=== PATIENT | female | born 1960 | race African-American/Black ===

== ENCOUNTER 2016-05-22 10:50 | Observation (INO) | payer OTHER ==
[~2016-05-22] VITALS: Ht 162.6 cm; Wt 113.1 kg
[2016-05-22] VITALS (7 sets, daily range): BP systolic 114–148; BP diastolic 84–102; PULSE 75–97; TEMP 36.7–37; O2SAT 96–97; BMI 42.8
[~2016-05-22 10:50] MED LIST changes: -ACET-749 PO; -ALBU1.257 NEB; -ATOR-24 PO; -BOPS PR; -CEVI1CAP PO; -DILT180C PO; -FLUT1SPR12; -HYDR-3126 PO; -HYDR-5688 PO; -INDO-24 PO; -LEVO1TAB35 PO; -METF-841 PO; -METH4PAK PO; -NTRGSL/4 UT; -OMEP40CA41 PO; -PRM/125 PO; -VLTG EXT; -VNTHFA/IN INH
[2016-05-22] MEDS ORDERED: VNTHFA/IN INH (11:15)
[2016-05-22] MEDS ORDERED: HYDR-3126 PO (11:15)
[2016-05-22 11:18] LABS: HEMATOCRIT 37.1 % (37-47); MEAN CELL VOLUME 73.8 fL (80-100); MEAN CORPUSCULAR HEMOGLOBIN 25.4 pg (25-34); MEAN CORPUSCULAR HGB CONC 34.5 g/dl (32-36); MEAN PLATELET VOLUME 10.2 fL (7.4-10.4); PLATELET COUNT 360 K/uL (130-400); RED BLOOD COUNT 5.03 M/uL (4.2-5.4); WHITE BLOOD COUNT 8.82 K/uL (4.8-10.8)
[2016-05-22 11:26] LABS: INR 1.1 (0.9-1.1); PARTIAL THROMBOPLASTIN RATIO 0.9; PROTHROMBIN TIME (PATIENT) 11.4 SECONDS (9.0-12.0)
[2016-05-22 11:34] LABS: BUN/CREATININE RATIO 12.4 (10-20); CALCIUM 8.5 mg/dl (8.5-10.1); CREATININE 1.2 mg/dl (0.60-1.20); POTASSIUM 2.9 mmol/L (3.5-5.1)
[2016-05-22 11:39] LABS: ALB/GLOB RATIO 0.7 (0.9-2)
--- NOTE | 2016-05-22 11:52 | DIAGNOSTIC IMAGING REPORT ---
CHEST ONE VIEW PORTABLE CLINICAL HISTORY: chest pain dyspnea COMPARISON STUDY: 09/20/2015 FINDINGS: The bones soft tissues and hemidiaphragms are normal. The cardiomediastinal silhouette is normal. The lungs are clear. The pulmonary vasculature is normal. IMPRESSION: Negative chest. Electronically signed by: Heath Mcdowell M.D. 05/22/2016 11:51 AM Dictated Date/Time: 05/22/2016 11:49 AM
[2016-05-22] MEDS ORDERED: SODIUM CHLORIDE 0.9% 500ML 500 ML IV STA (12:01)
--- NOTE | 2016-05-22 12:13 | EMERGENCY ROOM VISIT NOTE ---
History Report prepared by Juan: Carlos Manzanares Under the Supervision of: Dr. Zhou Dowd M.D. First contact with patient: 11:55 Chief Complaint: CHEST PAIN Stated Complaint: CP, SOB, NECK PAIN RADIATES TO BACK, TING. HANDS Nursing Triage Summary: Pt reports generalized abd pain x1 week denies n/v/d History of Present Illness The patient is a 55 year old female who presents to the Emergency Room with complaints of persistent chest pain that started a week ago. She was at pre-op testing earlier this morning for bladder surgery that she is going to have in 12 days. The patient noted to the people there that she had been having chest pain, and the patient was then sent here. She says that she came back from [place] 4 days ago, and was sick, so she went to [email or web address]. She was told that she had the flu. The patient was not given any antibiotics, but her flu-like symptoms were improving. She then caught a chest cold shortly thereafter, with symptoms that include chest pain, shortness of breath, nausea, coughing, finger numbness, and pain radiating to her back. She says her chest pain is currently an 8 out of 10 in severity, and the pain is worsened with breathing. Her shortness of breath is worsened with even daily activities, such as washing dishes. The patient has a history of pneumonia, COPD, and emphysema. She is taking an inhaler. She has no history or family history of blood clots. She does a have a family history of heart problems. Source of History: patient Onset: A week ago Position: chest Symptom Intensity: 8 out of 10 in severity Timing: other (persistent) Modifying Factors (Worsening): exertion, breathing Associated Symptoms: + SOB, + back pain, + cough, + nausea, + numbness ( finger) Note: Associated symptoms: Recent flu-like symptoms. Review of Systems See HPI for pertinent positives & negatives. A total of 10 systems reviewed and were otherwise negative. Past Medical & Surgical Medical Problems: (1) Arthritis (2) Asthmatic bronchitis (3) Carpal tunnel syndrome (4) COPD (chronic obstructive pulmonary disease) (5) Diabetes (6) GERD (gastroesophageal reflux disease) (7) Hoarseness of voice (8) HTN (hypertension) (9) Hypertension (10) Kidney stone (11) Obesity Family History Heart disease Social History Smoking Status: Former Smoker Drug Use: none Marital Status: Occupation Status: unemployed Current/Historical Medications Scheduled Albuterol Hfa (Ventolin Hfa), 2 PUFFS INH QID Diltiazem Hcl Coated Beads (Cardizem Cd), Unknown Dose PO QAM Duloxetine Hcl (Cymbalta), 60 MG PO BID Estrogens, Conjugated (Premarin), Unknown Dose PO QAM Fluticasone Prop/Salmeterol (Advair Diskus 500/50 60 Dose), 1 PUFF INH BID Gabapentin (Neurontin), 600 MG PO TID Indomethacin Ext Rel (Indocin Ext Rel), 75 MG PO BID Losartan Potassium (Cozaar), 100 MG PO HS Montelukast Sodium (Singulair), 10 MG PO QAM Nifedipine Ext Rel (Procardia Xl Ext Rel), 60 MG PO QAM Omeprazole (Prilosec), 40 MG PO QAM Potassium Chloride (Micro-K Ext Rel), Unknown Dose PO BID Pravastatin (Pravachol ), 40 MG PO QAM Sucralfate (Sucralfate), 1 GM PO QAM Tiotropium [place] Monohydrate (Spiriva Respimat), 2 PUFFS INH BID Triamcinolone Acetonide (Nasal (Nasacort Allergy 24Hr), 2 SPRAYS ALYSHA DAILY Trospium Chloride (Trospium Chloride Er), 1 CAP PO HS Scheduled PRN Hydroxyzine Hcl (Atarax), 50 MG PO TID PRN for itching or nerves Miscellaneous Medications Furosemide (Lasix), 20 MG PO Allergies Coded Allergies: Pomegranate (Verified Allergy, Mild, itch, 05/22/16) Physical Exam Vital Signs Date Time Temp Pulse Resp B/P Pulse Ox O2 Delivery O2 Flow Rate FiO2 05/22/16 15:08 36.7 94 16 148/102 96 Room Air 05/22/16 14:20 88 18 152/114 96 05/22/16 13:45 96 Room Air 05/22/16 12:38 88 18 154/102 96 Room Air 05/22/16 12:06 93 05/22/16 10:54 36.8 96 18 131/101 96 Room Air Physical Exam GENERAL: Patient is in no acute distress. HEENT: No acute trauma, normocephalic atraumatic, mucous membranes moist, no nasal congestion, no scleral icterus. NECK: No stridor, no adenopathy, no meningismus, trachea is midline. LUNGS: Decreased breath sounds bilaterally but no wheezing or rhonchi noted. Breath sounds are equal. HEART: Without murmurs gallops or rubs, regular rate and rhythm. CHEST: Tender to anterior sternal chest wall. ABDOMEN: Soft, nontender, bowel sounds positive, no hernias, no peritonitis. EXTREMITIES: No cyanosis, full range of motion of all the joints without pain or difficulty, no signs for acute trauma. Mild bilateral pedal edema. NEUROLOGIC: Oriented x 3, no acute motor or sensory deficits, no focal weakness. SKIN: No rash, no jaundice, no diaphoresis. Medical Decision & Procedures ER Provider Diagnostic Interpretation: X ray results and stated below per my interpretation and radiologist interpretation. Other radiology results and stated below per my review and radiologist interpretation: CHEST ONE VIEW PORTABLE CLINICAL HISTORY: chest pain dyspnea COMPARISON STUDY: 09/20/2015 FINDINGS: The bones soft tissues and hemidiaphragms are normal. The cardiomediastinal silhouette is normal. The lungs are clear. The pulmonary vasculature is normal. IMPRESSION: Negative chest. Electronically signed by: Heath Mcdowell M.D. 05/22/2016 11:51 AM Dictated Date/Time: 05/22/2016 11:[address] ANGIOGRAM OF THE CHEST CLINICAL HISTORY: Atypical chest pain shortness of breath. COMPARISON STUDY: 02/14/2016 TECHNIQUE: Following the IV administration of 94 mL of Optiray-320, CT angiogram of the thorax was performed from the thoracic inlet to the lung bases utilizing the pulmonary embolus protocol. Images are reviewed in the axial, sagittal, and coronal planes. IV contrast was administered without complication. MIP imaging was performed. CT DOSE: 538.88 mGy.cm FINDINGS: No pathologically enlarged axillary mediastinal or hilar lymph nodes were visualized. There is no evidence of thoracic aortic dilatation. There are no findings to indicate acute thoracic dissection. There were no pulmonary artery filling defects to indicate acute pulmonary embolism. No pleural effusions are visualized. There are mild dependent atelectatic changes. There is mild respiratory motion artifact. There is no focal pulmonary consolidation. There is a stable 8 mm perifissural right upper lobe pulmonary nodule IMPRESSION: 1. No CT evidence of acute pulmonary embolism 2. No CT evidence of thoracic aortic aneurysm dissection 3. No evidence of focal pulmonary consolidation 4. Stable 8 mm right upper lobe pulmonary nodule Electronically signed by: Jean Paul Arreguin M.D. 05/22/2016 12:40 PM Dictated Date/Time: 05/22/2016 12:37 PM Laboratory Results 05/22/16 11:07 05/22/16 11:07 Test 05/22/16 11:07 05/22/16 15:15 Red Blood Count 5.03 M/uL (4.2-5.4) Mean Corpuscular Volume 73.8 fL (80-100) Mean Corpuscular Hemoglobin 25.4 pg (25-34) Mean Corpuscular Hemoglobin Concent 34.5 g/dl (32-36) RDW Standard Deviation 39.0 fL (36.4-46.3) RDW Coefficient of Variation 14.6 % (11.5-14.5) Mean Platelet Volume 10.2 fL (7.4-10.4) Prothrombin Time 11.4 SECONDS (9.0-12.0) Prothromb Time International Ratio 1.1 (0.9-1.1) Activated Partial Thromboplast Time 24.3 SECONDS (21.0-31.0) Partial Thromboplastin Ratio 0.9 Anion Gap 11.0 mmol/L (3-11) Est Creatinine Clear Calc Drug Dose 65.3 ml/min Estimated GFR () 58.9 Estimated GFR (Non- 50.8 BUN/Creatinine Ratio 12.4 (10-20) Calcium Level 8.5 mg/dl (8.5-10.1) Total Bilirubin 0.3 mg/dl (0.2-1) Aspartate Amino Transf (AST/SGOT) 14 U/L (15-37) Alanine Aminotransferase (ALT/SGPT) 15 U/L (12-78) Alkaline Phosphatase 136 U/L (45-117) Total Creatine Kinase 186 U/L (26-192) Creatine Kinase MB 1.9 ng/ml (0.5-3.6) Creatine Kinase MB Ratio 1.0 (0-3.0) Total Protein 7.5 gm/dl (6.4-8.2) Albumin 3.2 gm/dl (3.4-5.0) Globulin 4.3 gm/dl (2.5-4.0) Albumin/Globulin Ratio 0.7 (0.9-2) Laboratory results reviewed by me. Medications Administered Medications (Trade) Dose Ordered Sig/[place] Route Start Time Stop Time Status Last Admin Dose Admin Sodium Chloride (Nss 500ml) 500 ml @ 999 mls/hr Q31M STAT IV 05/22/16 12:01 05/22/16 12:31 DC 05/22/16 12:01 999 MLS/HR Albuterol/ Ipratropium (Duoneb) 3 ml NOW STAT INH 05/22/16 13:02 05/22/16 13:04 DC 05/22/16 13:22 3 ML Morphine Sulfate (MoRPHine SULFATE INJ) 4 mg Q15M PRN IV 05/22/16 13:15 06/05/16 13:14 05/22/16 13:24 4 MG Potassium Chloride (Kcl 10 Meq / Wtr) 20 meq STK-MED ONCE IV 05/22/16 14:13 05/22/16 14:16 DC 05/22/16 15:34 10 MEQ ECG Indication: chest pain Rate (beats per minute): 92 Rhythm: normal sinus Findings: PAC, T-wave inversion (Inferior), prolonged QT Comparison ECG Date: T-wave changes are new compared to August 24 2015, but prolonged QT is not ED Course 1157: The patient was evaluated in room C1B. A complete history and physical exam was performed. 1201: Ordered NSS 500 ml @ 999 mls/hr IV. 1301: I discussed the patient with Dr. [place] [facility] - he will evaluate the patient for further treatment. 1302: Ordered Duoneb 3 ml INH. 1303: Upon reexamination the patient is resting comfortably. I discussed results and treatment plan with the patient. She verbalizes agreement and understanding. The patient will be evaluated for further management. 1315: Ordered Morphine Sulfate Inj 4 mg IV PRN. Medical Decision Differential diagnosis includes but is not limited to musculoskeletal pain, cardiac ischemia, angina, bronchitis, pneumonia, CHF, pulmonary embolus, aortic dissection. There is no leukocytosis or concerning anemia. No significant electrolyte abnormality, kidney failure or hepatitis. EKG shows a sinus rhythm with PACs. There is a prolonged QT. There are inverted T waves in the inferior leads which is a new finding. Chest x-ray does not show pneumonia, pneumothorax or CHF. Chest CT does not show evidence for PE, pneumonia or aortic dissection. Cardiac enzyme testing times one is not consistent with acute cardiac injury. The patient presents with some chest pain. She also complains of dyspnea. She does have cardiac risk factors and EKG changes. Some of her pain may be reproducible although I am concerned about the possibility of a cardiac component to her pain. Further care in the hospital is warranted. I spoke with her and to case management. The on-call hospitalist was consulted. During the patient's ER stay, she was given IV saline, a DuoNeb, IV morphine, she seems comfortable. Consults Time Called: 1300 Consulting Physician: Dr. Cindy STAHL hospitalist Returned Call: 1302 I discussed the patient with Dr. Cindy STAHL hospitalist - he will evaluate the patient for further treatment. Impression Primary Impression: Precordial chest pain Additional Impressions: SOB (shortness of breath) Acute electrocardiogram changes Scribe Attestation The scribe's documentation has been prepared under my direction and personally reviewed by me in its entirety. I confirm that the note above accurately reflects all work, treatment, procedures, and medical decision making performed by me. Departure Information Dispostion Being Evaluated By Hospitalist Referrals No Doctor, Assigned (PCP) Patient Instructions My [facility] Problem Qualifiers
[2016-05-22] MEDS ORDERED: OPTIRAY 320 IV PRN (12:15)
--- NOTE | 2016-05-22 12:42 | DIAGNOSTIC IMAGING REPORT ---
CT ANGIOGRAM OF THE CHEST CLINICAL HISTORY: Atypical chest pain shortness of breath. COMPARISON STUDY: 02/14/2016 TECHNIQUE: Following the IV administration of 94 mL of Optiray-320, CT angiogram of the thorax was performed from the thoracic inlet to the lung bases utilizing the pulmonary embolus protocol. Images are reviewed in the axial, sagittal, and coronal planes. IV contrast was administered without complication. MIP imaging was performed. CT DOSE: 538.88 mGy.cm FINDINGS: No pathologically enlarged axillary mediastinal or hilar lymph nodes were visualized. There is no evidence of thoracic aortic dilatation. There are no findings to indicate acute thoracic dissection. There were no pulmonary artery filling defects to indicate acute pulmonary embolism. No pleural effusions are visualized. There are mild dependent atelectatic changes. There is mild respiratory motion artifact. There is no focal pulmonary consolidation. There is a stable 8 mm perifissural right upper lobe pulmonary nodule IMPRESSION: 1. No CT evidence of acute pulmonary embolism 2. No CT evidence of thoracic aortic aneurysm dissection 3. No evidence of focal pulmonary consolidation 4. Stable 8 mm right upper lobe pulmonary nodule Electronically signed by: Jean Paul Arreguin M.D. 05/22/2016 12:40 PM Dictated Date/Time: 05/22/2016 12:37 PM
[2016-05-22] MEDS ORDERED: ALBUT/IPRATROP 3MG/0.5MG NEB 3 ML VIAL INH STA (13:02)
[2016-05-22] MEDS ORDERED: MoRPHine SULFATE 4 MG/ML 1 ML CARP\\VIAL IV PRN (13:15)
[2016-05-22] MEDS ORDERED: ALUMINUM/MAGNESIUM/SIMETH (MAALOX MAX) 30 ML UDC PO PRN (13:45)
[2016-05-22] MEDS ORDERED: POLYETHYLENE (MIRALAX) 17 GM PACK PO PRN (13:45)
[2016-05-22] MEDS ORDERED: ENOXAPARIN 40 MG/0.4 ML SYR SC SCH (13:45)
[2016-05-22] MEDS ORDERED: ONDANSETRON INJ 2 MG/ML 2 ML VIAL IV PRN (13:45)
[2016-05-22] MEDS ORDERED: hydrOXYzine HCL 25 MG TAB PO PRN (13:45)
[2016-05-22] MEDS ORDERED: MAGNESIUM HYDROXIDE SUSP 30 ML UDC PO PRN (13:45)
[2016-05-22] MEDS ORDERED: NITROGLYCERIN 0.4 MG SL PER TAB CHARGE SL PRN (13:45)
[2016-05-22] MEDS ORDERED: ACETAMINOPHEN 325 MG TAB PO PRN (13:45)
[2016-05-22] MEDS ORDERED: POTASSIUM CHLR 20 MEQ / WTR 20 MEQ in PREMIXED WATER 100 ML IV SCH (13:47)
[2016-05-22] MEDS ORDERED: IV FLUIDS COMPLETED PRN (14:00)
--- NOTE | 2016-05-22 14:51 | History and Physical ---
History & Physical Date & Time of Service: May 22, 2016 at 14:13 Chief Complaint: Cp, Sob, Neck Pain Radiates To Back, Ting. Hands Primary Care Physician: No Doctor, Assigned History of Present Illness Source: patient 55 y/o F Hx COPD, morbid obesity, HTN, HPL, metabolic syndrome - presents with intermittent central CP accompanied by SOB, nausea, diaphoresis and peripheral paresthesias. Initial EKG shows inferior T wave inversions which were not previously present. She denies a productive cough, wheezing or fevers. Past Medical/Surgical History Medical Problems: (1) Arthritis Status: Chronic (2) Carpal tunnel syndrome Status: Chronic (3) COPD (chronic obstructive pulmonary disease) Status: Chronic (4) Diabetes Status: Chronic (5) Hypertension Status: Chronic (6) Kidney stone Status: Resolved Family History Heart disease Brother had 5 MIs and at age 42 Social History quit smiking 05/02 - 25+ pack year Hx Smoking Status: Former Smoker Drug Use: none Marital Status: Occupational Status: unemployed Multi-Drug Resistant Organisms History of MDRO: No Allergies Coded Allergies: Pomegranate (Verified Allergy, Mild, itch, 05/22/16) Home Medications Scheduled Albuterol Hfa (Ventolin Hfa), 2 PUFFS INH QID Diltiazem Hcl Coated Beads (Cardizem Cd), Unknown Dose PO QAM Duloxetine Hcl (Cymbalta), 60 MG PO BID Estrogens, Conjugated (Premarin), Unknown Dose PO QAM Fluticasone Prop/Salmeterol (Advair Diskus 500/50 60 Dose), 2 PUFF INH BID Gabapentin (Neurontin), 600 MG PO TID Indomethacin Ext Rel (Indocin Ext Rel), 75 MG PO BID Losartan Potassium (Cozaar), 100 MG PO HS Montelukast Sodium (Singulair), 10 MG PO QAM Nifedipine Ext Rel (Procardia Xl Ext Rel), 60 MG PO QAM Omeprazole (Prilosec), 40 MG PO QAM Potassium Chloride (Micro-K Ext Rel), Unknown Dose PO BID Pravastatin (Pravachol ), 40 MG PO QAM Sucralfate (Sucralfate), 1 GM PO QAM Tiotropium [place] Monohydrate (Spiriva Respimat), 2 PUFFS INH BID Triamcinolone Acetonide (Nasal (Nasacort Allergy 24Hr), 2 SPRAYS ALYSHA DAILY Trospium Chloride (Trospium Chloride Er), 1 CAP PO HS Scheduled PRN Hydroxyzine Hcl (Atarax), 50 MG PO TID PRN for itching or nerves Miscellaneous Medications Furosemide (Lasix), 20 MG PO Review of Systems Constitutional: No chills, No fever, No sweats Eyes: No eye pain, No worsening of vision ENT: No hearing loss, No nasal symptoms, No unusual epistaxis Respiratory: + dyspnea at rest, + dyspnea on exertion, + shortness of breath, No cough, No sputum, No wheezing Cardiovascular: + chest pain, No PND, No orthopnea Abdomen: + nausea, No pain, No vomiting Musculoskeletal: + joint pain, + muscle pain Genitourinary - Female: No dysuria, No urinary frequency, No urinary urgency Neurologic: No memory loss, No paralysis Psychiatric: No depression symptoms Endocrine: + fatigue Hematologic / Lymphatic: No abnormal bleeding/bruising Integumentary: No rash Allergic / Immunologic: No environmental allergies Physical Exam Vital Signs Date Time Temp Pulse Resp B/P Pulse Ox O2 Delivery O2 Flow Rate FiO2 05/22/16 12:38 88 18 154/102 96 Room Air 05/22/16 12:06 93 05/22/16 10:54 36.8 96 18 131/101 96 Room Air General Appearance: WD/WN, no apparent distress, + pertinent finding (Obese elderly female in no acute distress) Head: normocephalic Eyes: normal inspection, PERRL, EOMI ENT: normal ENT inspection, pharynx normal Neck: supple Respiratory/Chest: chest non-tender, lungs clear, normal breath sounds, no respiratory distress, no accessory muscle use Cardiovascular: regular rate, rhythm, no edema, no gallop, no murmur, normal peripheral pulses Abdomen/GI: normal bowel sounds, non tender, soft Back: normal inspection, no CVA tenderness, no muscle spasm, normal range of motion Extremities/Musculoskelatal: normal inspection, no calf tenderness, normal capillary refill, no pedal edema, normal range of motion 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, no motor/sensory deficits, alert, normal mood/affect, normal reflexes, oriented x 3 Skin: normal color, warm/dry, no rash Diagnostics Laboratory Results Results Past 24 Hours Test 05/22/16 11:07 05/22/16 13:58 Range/Units White Blood Count 8.82 4.8-10.8 K/uL Red Blood Count 5.03 4.2-5.4 M/uL Hemoglobin 12.8 12.0-16.0 g/dL Hematocrit 37.1 37-47 % Mean Corpuscular Volume 73.8 80-100 fL Mean Corpuscular Hemoglobin 25.4 25-34 pg Mean Corpuscular Hemoglobin Concent 34.5 32-36 g/dl RDW Standard Deviation 39.0 36.4-46.3 fL RDW Coefficient of Variation 14.6 11.5-14.5 % Platelet Count 360 130-400 K/uL Mean Platelet Volume 10.2 7.4-10.4 fL Prothrombin Time 11.4 9.0-12.0 SECONDS Prothromb Time International Ratio 1.1 0.9-1.1 Activated Partial Thromboplast Time 24.3 21.0-31.0 SECONDS Partial Thromboplastin Ratio 0.9 Sodium Level 139 136-145 mmol/L Potassium Level 2.9 3.5-5.1 mmol/L Chloride Level 102 98-107 mmol/L Carbon Dioxide Level 26 21-32 mmol/L Anion Gap 11.0 3-11 mmol/L Blood Urea Nitrogen 15 7-18 mg/dl Creatinine 1.20 0.60-1.20 mg/dl Est Creatinine Clear Calc Drug Dose 65.3 ml/min Estimated GFR () 58.9 Estimated GFR (Non- 50.8 BUN/Creatinine Ratio 12.4 10-20 Random Glucose 97 70-99 mg/dl Calcium Level 8.5 8.5-10.1 mg/dl Total Bilirubin 0.3 0.2-1 mg/dl Aspartate Amino Transf (AST/SGOT) 14 15-37 U/L Alanine Aminotransferase (ALT/SGPT) 15 12-78 U/L Alkaline Phosphatase 136 45-117 U/L Total Creatine Kinase 186 26-192 U/L Creatine Kinase MB 1.9 0.5-3.6 ng/ml Creatine Kinase MB Ratio 1.0 0-3.0 Troponin I 0.029 0-0.045 ng/ml Total Protein 7.5 6.4-8.2 gm/dl Albumin 3.2 3.4-5.0 gm/dl Globulin 4.3 2.5-4.0 gm/dl Albumin/Globulin Ratio 0.7 0.9-2 Diagnostic Radiology CTA obtained to r/o PE - no acute findings EKG SInus - prolonged Q - inf T wv inversions Impression Assessment and Plan 55 y/o F Hx COPD, morbid obesity, HTN, HPL, metabolic syndrome - presents with intermittent central CP accompanied by SOB, nausea, diaphoresis and peripheral paresthesias. Initial EKG shows inferior T wave inversions which were not previously present. She denies a productive cough, wheezing or fevers. 1) CP - she is assigned to telemetry for observation. We will obtain serial troponins and substitute Pravachol with Atorvastatin. We will avoid introdicing a B antonio at present due to her COPD. Cardiology will be consulted to advise on stress testing considering her weight and COPD. She will receive daily ASA. CP will be treated with NTG or Morphine. 2) HTN - has been difficult to control in the past. She is normotensive on admission so that we will continue her current regimen. 3) COPD - lungs are clear presently - cont inhalers as prescribed 4) DM - she states that she is actually pre-diabetic and treats with diet only at present 5) Obesity - may benefit from nutritional counseling prior to DC. Heparin prophylaxis - Full code Total time for this admit including review of labs, imaging, EKG - discussion with ER MD and pt - 31 min Level of Care Telemetry Resuscitation Status FULL RESUSCITATION VTE Prophylaxis VTE Risk Assessment Done? Y/N: Yes Risk Level: Moderate Given or contraindicated: Unfractionated heparin SQ
[2016-05-22] MEDS: POTASSIUM CHLORIDE 10 MEQ / 100ML WTR IV ONE ×2 (15:34→16:06)
[2016-05-22] MEDS ORDERED: POTASSIUM CHLORIDE 20 MEQ TABCR PO STA (15:43)
[2016-05-22] MEDS ORDERED: NSS + 20MEQ KCL 1000ML 1,000 ML IV SCH (15:46)
[2016-05-22] MEDS: [UNRECOGNIZED DRUG - OTHER] SCH ×2 (15:56→23:23)
[2016-05-22] MEDS ORDERED: MAGNESIUM SULFATE 1GM / D5W 1 GM in PREMIXED IN D5W 100 ML IV SCH (16:00)
[2016-05-22] MEDS: POTASSIUM CHLR 10MEQ / WTR IV SCH ×2 (16:08→17:01)
[2016-05-22] MEDS: GABAPENTIN 300 MG CAP PO SCH ×2 (16:18→20:41)
[2016-05-22] MEDS: ALBUTEROL HFA 8 GM INHALER INH SCH ×2 (17:01→20:40)
[2016-05-22] MEDS: FLUTICASONE/SALMETEROL (ADVAIR) 500/50 INH 14 PUFF INH SCH (20:40)
[2016-05-22] MEDS: MONTELUKAST SOD 10 MG TAB PO SCH (20:41)
[2016-05-22] MEDS: LOSARTAN POTASSIUM 50 MG TAB PO SCH (20:42)
[2016-05-22] MEDS: DULOXETINE HCL 60 MG CAP PO SCH (20:42)
[2016-05-22] MEDS: HEPARIN SOD 5000 UNIT/0.5 ML CARP SQ SCH (20:46)
[2016-05-22] MEDS: MoRPHine SULFATE 2 MG/ML CARP IV PRN (20:46)
[2016-05-22] MEDS ORDERED: TROSPIUM CHLORIDE PO SCH (21:00)
[2016-05-22] MEDS ORDERED: FLUTICASONE/SALMETEROL (ADVAIR) 500/50 INH 14 PUFF INH SCH (21:00)
[2016-05-23 03:10] VITALS: BP 161/96; PULSE 83; TEMP 36.8; O2SAT 96
[2016-05-23] MEDS: MoRPHine SULFATE 2 MG/ML CARP IV PRN ×5 (05:36→23:34)
[2016-05-23] MEDS: HEPARIN SOD 5000 UNIT/0.5 ML CARP SQ SCH ×3 (05:40→21:26)
[2016-05-23 06:19] LABS: ESTIMATED AVERAGE GLUCOSE 143 mg/dl; HA1C FLAG Normal (Normal)
[2016-05-23 06:28] LABS: BUN/CREATININE RATIO 12.6 (10-20); CALCIUM 8.3 mg/dl (8.5-10.1); MAGNESIUM 1.9 mg/dl (1.8-2.4); POTASSIUM 3.2 mmol/L (3.5-5.1)
[2016-05-23 07:31] VITALS: BP 142/91; PULSE 91; TEMP 36.5; O2SAT 93
[2016-05-23] MEDS: [UNRECOGNIZED DRUG - OTHER] SCH ×2 (07:42→16:00)
[2016-05-23] MEDS ORDERED: PRAVASTATIN SOD 20 MG TAB PO SCH (09:00)
[2016-05-23] MEDS: FLUTICASONE/SALMETEROL (ADVAIR) 500/50 INH 14 PUFF INH SCH ×2 (09:03→21:21)
[2016-05-23] MEDS: ALBUTEROL HFA 8 GM INHALER INH SCH ×4 (09:04→21:22)
[2016-05-23] MEDS: DULOXETINE HCL 60 MG CAP PO SCH ×2 (09:04→21:24)
[2016-05-23] MEDS: SUCRALFATE 1 GM TAB PO SCH (09:04)
[2016-05-23] MEDS: ATORVASTATIN 40 MG TAB PO SCH (09:05)
[2016-05-23] MEDS: FUROSEMIDE 20 MG TAB PO SCH (09:05)
[2016-05-23] MEDS: NIFEdipine 30 MG CR TAB PO SCH (09:06)
[2016-05-23] MEDS: GABAPENTIN 300 MG CAP PO SCH ×3 (09:06→21:24)
[2016-05-23] MEDS: PANTOprazole SOD 40 MG TAB PO SCH (09:07)
--- NOTE | 2016-05-23 10:20 | CARDIOLOGY CONSULTATION REPORT ---
DATE OF CONSULTATION: 05/23/2016 DATE OF CONSULTATION: 05/23/2016. REASON FOR CONSULTATION: 1. Chest pain. 2. Abnormal EKG. 3. Multiple cardiac risk factors. HISTORY OF PRESENT ILLNESS: Marian is a morbidly obese 55-year-old -Citizen Of [place] female with a history of long-standing hypertension, dyslipidemia, dysmetabolic syndrome with prediabetes mellitus, COPD, and a 25-pack year history of smoking who presented acutely to [facility] yesterday complaining of sharp and dull chest pain which has been present for the past week. The patient states that she woke up one morning last week with a very sharp central chest pain which lasted a brief time, and then it became a dull ache which radiated through to her back and was associated with some shortness of breath, nausea, diaphoresis, and some numbness of her left hand. She states that this discomfort has been present continuously since that time. It is worse with deep breathing or with direct palpation. She denies any prior cardiac history, but has multiple cardiac risk factors as mentioned above, in addition to a very strong family history of premature CAD. Please note that the patient underwent an echocardiogram in 2014 which showed hyperdynamic LV systolic function with an LVEF greater than 70% with mild concentric LVH as well as moderate to severe asymmetric LVH involving the basal septum. No LVOT gradient at rest. No significant valvular abnormalities. She also had a cardiac catheterization within the past 3-4 years at [facility]. She states that "they said it was okay". The patient offers no other complaints. MEDICATIONS: 1. Furosemide 20 mg daily. 2. Nifedipine 60 mg q.a.m. 3. Carafate 1 gram p.o. q.a.m. 4. Protonix 40 mg daily. 5. Lipitor 40 mg each morning. 6. Heparin 5,000 units subcutaneous injection q. 8 hours. 7. Cymbalta 60 mg b.i.d. 8. Cozaar 100 mg at bedtime. 9. Singulair 10 mg daily. 10. Advair Diskus 500/50 one puff b.i.d. 11. Albuterol MDI 2 puffs p.o. q.i.d. 12. Spiriva Respimat 2 puffs inhaled twice a day. 13. Neurontin 600 mg t.i.d. 14. Hydroxyzine 50 mg t.i.d. p.r.n. for itching. 15. Tylenol p.r.n. 16. Maalox Max p.r.n. 17. Milk of Magnesia p.r.n. 18. Zofran p.r.n. 19. Nitroglycerin sublingually as needed. 20. Morphine sulfate 2 mg IV q. 30 minutes p.r.n. for chest pain. 21. MiraLax 17 grams daily as needed. ALLERGIES: POMEGRANATE. PAST MEDICAL HISTORY: 1. Morbid obesity with dysmetabolic syndrome. 2. Hypertension. 3. Dyslipidemia. 4. Pre-diabetes mellitus. 5. COPD. 6. Twenty-five pack year history. Quit smoking April 2015. 7. History of nephrolithiasis. 8. Status post cholecystectomy. 9. History of cardiac catheterization within the past 3-4 years. SOCIAL HISTORY: The patient is , lives alone. Former smoker. No routine exercise program. FAMILY HISTORY: Significant for CAD in her brother who at the age of 42 after his 5th [place]. PHYSICAL EXAMINATION: VITAL SIGNS: Temperature is 36.5 degrees Celsius, pulse is 88 and regular, respiratory rate 16 unlabored, blood pressure is 142/91. SpO2 is 93% on room air. GENERAL: The patient is in no acute distress. She is lying comfortably in bed and is alert, interactive. HEAD, EYES, EARS, NOSE, AND THROAT: Head is atraumatic, normocephalic. EOMs intact. Sclerae are anicteric. Face is symmetric. No perioral cyanosis. Mucous membranes moist. NECK: Without thyromegaly, adenopathy, or JVD. Carotid upstrokes are +2 bilaterally without obvious bruits. CHEST AND LUNGS: Are with mildly diminished breath sounds, otherwise clear. CARDIOVASCULAR: S1 and S2 are regular, distant, without obvious murmur, gallop, or rub. PMI is nonpalpable. No lifts, heaves, or thrills. No abdominal aortic or renal bruits. ABDOMINAL EXAMINATION: Obese. Bowel sounds are present. No masses, organomegaly, or tenderness. EXTREMITIES: Are without clubbing, cyanosis, or edema. NEUROLOGIC EXAMINATION: The patient is awake, alert and oriented, pleasant and cooperative. Answers questions appropriately. Speech is clear. Normal movement in all 4 extremities. [place] pattern not assessed. MUSCULOSKELETAL EXAMINATION: Reveals reproducible anterior chest wall tenderness along the bilateral costosternal junctions. EKG on admission showed inferior T-wave inversion with a premature atrial contraction as well as prolonged QT (QTC 540 milliseconds). Telemetry monitoring reveals predominantly normal sinus rhythm with occasional PACs and PVCs. LABORATORY DATA: White blood cell count is 8.82. Hemoglobin 12.8 grams/dL, hematocrit 37.1%, platelet count is 360,000. Sodium is 141 mmol/L, potassium 3.2 mmol/L, BUN 13 mg/dL, creatinine 1.00 mg/dL, random glucose 117 mg/dL, magnesium level is normal at 1.9 mg/dL. Troponin I levels are 0.033, 0.026, and 0.029 ng/mL. Total CK 186 units per liter with a CK-MB of 1.9 ng/mL. Hepatitis C screen is negative. Coag studies are unremarkable. Chest x-ray shows no acute changes. CT angiogram of the chest shows no evidence of pulmonary embolism. ASSESSMENT: 1. Atypical chest pain for the past week. Has both pleuritic component and musculoskeletal component. 2. Abnormal EKG, possibly related to underlying LVH and moderate to severe upper septal thickening. Long QT is present as well. 3. Hypertension. 4. Dyslipidemia. 5. Obesity with dysmetabolic syndrome. 6. Chronic obstructive pulmonary disease with prior history of tobacco use. 7. Reportedly no significant findings on cardiac catheterization within the past 3-4 years. PLAN: 1. Discussed with Dr. Eagle who also met with the patient. 2. I have reassured her that her chest pain is atypical, and likely has a musculoskeletal origin. 3. However with abnormal EKG and premature family history -- would recommend evaluating an echocardiogram while hospitalized, and we will also acquire her cath report from [facility]. 4. Continue Lipitor 40 mg daily oysterman. 5. Continue Procardia 60 mg daily. 6. Continue Lasix 20 mg daily. 7. Continue Cozaar 100 mg daily. 8. Continue treatment of underlying COPD. 9. Would recommend supplementing potassium as she remains hypokalemic. 10. We will continue to follow along while hospitalized. [facility]
[2016-05-23 11:12] VITALS: Ht 162.6 cm; Wt 113.1 kg
--- NOTE | 2016-05-23 11:15 | ECHOCARDIOGRAM REPORT ---
*NOTICE TO RECEIVING CONSTITUTION PARTY AGENCY This information is strictly Confidential and protected under [place] law. [place] law prohibits you from making any further disclosure of this information unless further disclosure is expressly permitted by the written consent of the person to whom it pertains or is authorized by law. A general authorization for the release of medical or other information is not sufficient for this purpose. Hospital accepts no responsibility if the information is made available to any other person, INCLUDING THE PATIENT. Interpretation Summary * Name: VEE FELDMAN Study Date: 05/23/2016 09:47 AM BP: 142/91 mmHg * Patient Location: C.2E\S\E206\S\1 HR: 91 * : 1960 (M/d/yyyy) Gender: Female Height: 64 in * Age: 55 yrs Ethnicity: AA Weight: 250 lb * Ordering Physician: Jayce Garcia * Referring Physician: Self, Referred * Performed By: Yara Mascorro RDCS * * Reason For Study: CHEST PAIN, ABNL EKG * BSA: 2.2 m2 * History: CHEST PAIN, ABNL EKG * -- Conclusions -- * Left ventricular systolic function is normal. * Ejection Fraction = 65-70%. * Moderate to severe asymmetric hypertrophy of the basal septum without an outflow gradient. * Grade I diastolic dysfunction, (abnormal relaxation pattern). * No significant valvular pathology. Procedure Details * A contrast injection of Definity was performed to improve assessment of LV function. * Contrast was injected into an intravenous site in the right arm. * One vial of Definity ultrasound contrast was diluted in normal saline to a total volume of 10 ml. A total of '2' ml of solution was administered during imaging. * Lot # [id number] of Definity utilized for procedure. * Expiration date 1 MAY 04. * The attending nurse who injected the contrast agent was RAPHAEL BAUER RN. Left Ventricle * The left ventricle is normal in size. * Moderate to severe asymmetric hypertrophy of the basal septum without an outflow gradient. * Ejection Fraction = 65-70%. * Left ventricular systolic function is normal. * No regional wall motion abnormalities noted. Right Ventricle * The right ventricle is grossly normal size. * The right ventricular systolic function is normal as assessed by tricuspid annular plane systolic excursion (TAPSE) (normal >1.5 cm). Atria * Borderline left atrial enlargement. * Right atrial size is normal. * There is no evidence of atrial septal defect, but resolution does not allow assessment for a patent foramen ovale. Mitral Valve * The mitral valve is grossly normal. * There is no mitral valve stenosis. * Significant mitral regurgitation is absent. Tricuspid Valve * The tricuspid valve is not well visualized, but is grossly normal. * There is no tricuspid stenosis. * Significant tricuspid regurgitation is absent. Aortic Valve * The aortic valve is normal in structure and function. * The aortic valve opens well. * No hemodynamically significant valvular aortic stenosis. * No aortic regurgitation is present. Pulmonic Valve * The pulmonic valve is not well visualized. Great Vessels * The aortic root is normal size. * The pulmonary is not well visualized. Pericardium/Pleural * There is no pericardial effusion. Great Vessels * IVC not well visualized. Left Ventricular Diastolic Function * Grade I diastolic dysfunction, (abnormal relaxation pattern). MMode 2D Measurements and Calculations IVSd 1.5 cm IVSs 1.9 cm LVIDd 4.2 cm LVIDs 3.1 cm LVPWd 1.9 cm LVPWs 1.8 cm IVS/LVPW 0.79 FS 24.9 % EDV(Teich) 76.4 ml ESV(Teich) 38.4 ml EF(Teich) 49.7 % EDV(cubed) 71.5 ml ESV(cubed) 30.3 ml EF(cubed) 57.7 % % IVS thick 24.9 % % LVPW thick -7.40 % LV mass(C)d 311.6 grams LV mass(C)dI 144.9 grams/m\S\2 LV mass(C)s 242.0 grams LV mass(C)sI 112.5 grams/m\S\2 SV(Teich) 38.0 ml SI(Teich) 17.7 ml/m\S\2 SV(cubed) 41.2 ml SI(cubed) 19.2 ml/m\S\2 Ao root diam 2.7 cm Ao root area 5.5 cm\S\2 LA dimension 3.6 cm LA/Ao 1.3 LVAd ap4 29.4 cm\S\2 LVLd ap4 8.1 cm EDV(MOD-sp4) 87.7 ml EDV(sp4-el) 91.2 ml LVAs ap4 19.7 cm\S\2 LVLs ap4 7.6 cm ESV(MOD-sp4) 42.1 ml ESV(sp4-el) 43.4 ml EF(MOD-sp4) 52.0 % EF(sp4-el) 52.4 % LVAd ap2 28.8 cm\S\2 LVLd ap2 8.5 cm EDV(MOD-sp2) 83.0 ml EDV(sp2-el) 83.0 ml LVAs ap2 18.3 cm\S\2 LVLs ap2 7.1 cm ESV(MOD-sp2) 40.9 ml ESV(sp2-el) 39.9 ml EF(MOD-sp2) 50.7 % EF(sp2-el) 51.9 % LVLd %diff 4.8 % EDV(MOD-bp) 85.9 ml LVLs %diff -6.86 % ESV(MOD-bp) 41.9 ml EF(MOD-bp) 51.2 % SV(MOD-sp4) 45.6 ml SI(MOD-sp4) 21.2 ml/m\S\2 SV(MOD-sp2) 42.1 ml SI(MOD-sp2) 19.6 ml/m\S\2 SV(MOD-bp) 44.0 ml SI(MOD-bp) 20.5 ml/m\S\2 SV(sp4-el) 47.8 ml SI(sp4-el) 22.2 ml/m\S\2 SV(sp2-el) 43.0 ml SI(sp2-el) 20.0 ml/m\S\2 Doppler Measurements and Calculations MV E max kayleen 64.0 cm/sec MV A max kayleen 98.0 cm/sec MV E/A 0.65 MV dec time 0.20 sec Ao V2 max 151.2 cm/sec Ao max PG 9.1 mmHg Ao max PG (full) 5.9 mmHg LV V1 max PG 3.2 mmHg LV V1 max 89.7 cm/sec
[2016-05-23 11:55] VITALS: BP 142/91; PULSE 86; TEMP 36.6; O2SAT 94
[2016-05-23 15:30] VITALS: BP 168/104; PULSE 98; TEMP 36.7; O2SAT 95
[2016-05-23] MEDS ORDERED: HydrALAZINE HCL 20 MG/ML VIAL IV. PRN (16:45)
--- NOTE | 2016-05-23 18:45 | Hospitalist Progress Note ---
Hospitalist Progress Note Date of Service May 23, 2016. Subjective Pt evaluation today including: conversation w/ patient, physical exam, chart review, lab review, review of studies, review of inpatient medication list Patient has had chest pain for 1 week. She tells me that it was actually worse earlier this week, but she was in this area seeing urology and felt she should be checked out in our ED. She lives alone (has a cat) in [place], [place]. Her chest pain is worse with movement, deep breathing, coughing and bending forward or sideways. She tells me that she is to have PFTs as part of a pre-surgery work up for urologic procedure. She has associated SOB and tingling into her b/l arms with chest pains. Additional Comments: A 10 system review was performed and all were negative. Positives were placed in the subjective section. Objective Vital Signs Date Time Temp Pulse Resp B/P Pulse Ox O2 Delivery O2 Flow Rate FiO2 05/23/16 15:30 36.7 98 21 168/104 95 Room Air 05/23/16 12:00 Room Air 05/23/16 11:55 36.6 86 18 142/91 94 Room Air 05/23/16 07:31 36.5 91 16 142/91 93 Room Air 05/23/16 04:00 CPAP 05/23/16 03:10 36.8 83 19 161/96 96 CPAP 05/22/16 23:59 CPAP 05/22/16 23:46 36.8 97 18 137/90 96 Room Air 05/22/16 22:45 75 96 05/22/16 20:00 97 Room Air 05/22/16 19:46 37.0 80 18 114/84 97 Physical Exam Notes: GEN: Awake, alert, and oriented x 3. Not in acute distress HEENT: Tm's intact, no inflammation, EOMI, PERRLA, MMM Neck: Soft, supple Lungs: CTA b/l, no r/r/w Heart: REG, nrl S1S2 without murmurs, rubs or gallops. Chest pain was reproducible with palpation of sternum and with deep breath. Abdomen: Soft, NT, ND, + BS EXT: No C/C/E NEURO: CN's II-XII grossly intact, non-focal Skin: warm, dry, no rashes PSYCH: pleasant, cooperative, very animated when conversing. Laboratory Results Last 24 Hours Test 05/22/16 21:00 05/23/16 05:20 05/23/16 06:37 05/23/16 11:22 Troponin I 0.033 ng/ml Sodium Level 141 mmol/L Potassium Level 3.2 mmol/L Chloride Level 104 mmol/L Carbon Dioxide Level 27 mmol/L Anion Gap 10.0 mmol/L Blood Urea Nitrogen 13 mg/dl Creatinine 1.00 mg/dl Est Creatinine Clear Calc Drug Dose 78.3 ml/min Estimated GFR () 73.5 Estimated GFR (Non- 63.4 BUN/Creatinine Ratio 12.6 Random Glucose 111 mg/dl Estimated Average Glucose 143 mg/dl Hemoglobin A1c 6.6 % Calcium Level 8.3 mg/dl Magnesium Level 1.9 mg/dl Bedside Glucose 117 mg/dl 98 mg/dl Test 05/23/16 16:01 Bedside Glucose 108 mg/dl Assessment and Plan 1) Atypical chest pain - cardiology saw and evaluated the patient. [facility] I believe her chest pain is pleurisy. She describes having a viral respiratory illness a week prior while she was [place]. 2) HTN - has become uncontrolled today. I ordered prn hydralazine. I will add a toprol xl to her regiment as she does border on sinus tach at times. 3) COPD - stable without exacerbation. 4) Type II DM - Pre-diabetes according to patient. A1C was 6.6. 5) Recent viral respiratory illness - she reports that she is having much less cough. Heparin for DVT prophylaxis.
[2016-05-23] MEDS ORDERED: PHARMACY GLYCEMIC MGMT CONSULT PRN (19:17)
[2016-05-23 19:40] VITALS: BP 142/88; PULSE 93; TEMP 36.7; O2SAT 95
[2016-05-23] MEDS ORDERED: DEXTROSE 50% 50 ML SYR IV PRN (19:45)
[2016-05-23] MEDS ORDERED: GLUCOSE 10 TABS/TUBE PO PRN (19:45)
[2016-05-23] MEDS ORDERED: GLUCOSE 40% GEL 15 GM TUBE PO PRN (19:45)
[2016-05-23] MEDS ORDERED: GLUCAGON FOR INJ 1 MG VIAL SQ PRN (19:45)
[2016-05-23] MEDS: METHYLPREDNISOLONE IV 40 MG in SYRINGE 0 ML IV SCH (19:50)
[2016-05-23] MEDS: INSULIN ASPART 100 UNITS/ML 3 ML PEN SC SCH (21:22)
[2016-05-23] MEDS: MONTELUKAST SOD 10 MG TAB PO SCH (21:25)
[2016-05-23] MEDS: LOSARTAN POTASSIUM 50 MG TAB PO SCH (21:25)
[2016-05-24] VITALS (8 sets, daily range): BP systolic 127–163; BP diastolic 74–108; PULSE 78–108; TEMP 36.5–36.9; O2SAT 93–97
[2016-05-24] MEDS ORDERED: INSULIN ASPART 100 UNITS/ML 3 ML PEN SC SCH (02:00)
[2016-05-24] MEDS: METHYLPREDNISOLONE IV 40 MG in SYRINGE 0 ML IV SCH ×3 (02:36→20:59)
[2016-05-24] MEDS: MoRPHine SULFATE 2 MG/ML CARP IV PRN (02:46)
[2016-05-24 06:00] LABS: BASO % 0.2 %; BASO ABS # 0.01 K/uL (0-0.2); COMPLETE YES; HEMATOCRIT 35.4 % (37-47); IG% 0.2 %; LYMPH % 16.8 %; LYMPH ABS # 0.83 K/uL (1.2-3.4); MEAN CELL VOLUME 76.1 fL (80-100); MEAN CORPUSCULAR HEMOGLOBIN 25.6 pg (25-34); MEAN CORPUSCULAR HGB CONC 33.6 g/dl (32-36); MEAN PLATELET VOLUME 10.6 fL (7.4-10.4); NEUT % 81.8 %; PLATELET COUNT 302 K/uL (130-400); RED BLOOD COUNT 4.65 M/uL (4.2-5.4); WHITE BLOOD COUNT 4.94 K/uL (4.8-10.8)
[2016-05-24] MEDS: HEPARIN SOD 5000 UNIT/0.5 ML CARP SQ SCH ×3 (06:28→21:05)
[2016-05-24 06:33] LABS: BUN/CREATININE RATIO 12.5 (10-20); POTASSIUM 3.4 mmol/L (3.5-5.1)
[2016-05-24] MEDS: [UNRECOGNIZED DRUG - OTHER] SCH ×3 (08:00→15:02)
[2016-05-24] MEDS: ALBUTEROL HFA 8 GM INHALER INH SCH ×3 (08:27→20:59)
[2016-05-24] MEDS: FLUTICASONE/SALMETEROL (ADVAIR) 500/50 INH 14 PUFF INH SCH ×2 (08:27→20:57)
[2016-05-24] MEDS: METOPROLOL SUCC 25MG EXT REL TAB PO SCH (08:28)
[2016-05-24] MEDS: DULOXETINE HCL 60 MG CAP PO SCH ×2 (08:28→21:07)
[2016-05-24] MEDS: GABAPENTIN 300 MG CAP PO SCH ×3 (08:42→20:58)
[2016-05-24] MEDS: NIFEdipine 30 MG CR TAB PO SCH (08:42)
[2016-05-24] MEDS: SUCRALFATE 1 GM TAB PO SCH (08:42)
[2016-05-24] MEDS: ATORVASTATIN 40 MG TAB PO SCH (08:42)
[2016-05-24] MEDS: PANTOprazole SOD 40 MG TAB PO SCH (08:43)
[2016-05-24] MEDS: FUROSEMIDE 20 MG TAB PO SCH (08:43)
[2016-05-24] MEDS: INSULIN ASPART 100 UNITS/ML 3 ML PEN SC SCH ×4 (08:47→21:00)
--- NOTE | 2016-05-24 09:20 | Pharmacy Progress Note ---
Glycemic Control Intl Consult Date of Service May 24, 2016. Scope Glycemic Pharmacist consulted by Dr Cedeno on 05/23/16 for glycemic control and to write orders per [facility] inpatient glycemic control protocol Objective Weight (Kilograms): 113.100 Accuchecks BSG (last 24hrs): Test 05/23/16 11:22 05/23/16 16:01 05/23/16 20:15 05/24/16 02:35 Bedside Glucose 98 mg/dl (70-90) 108 mg/dl (70-90) 99 mg/dl (70-90) 185 mg/dl (70-90) Test 05/24/16 05:37 05/24/16 06:50 Random Glucose 180 mg/dl (70-99) Bedside Glucose 171 mg/dl (70-90) Laboratory Data (last 24hrs) Test 05/24/16 05:37 Anion Gap 14.0 mmol/L BUN/Creatinine Ratio 12.5 Blood Urea Nitrogen 13 mg/dl Creatinine 1.00 mg/dl Potassium Level 3.4 mmol/L Sodium Level 138 mmol/L White Blood Count 4.94 K/uL Red Blood Count 4.65 M/uL Hemoglobin 11.9 g/dL Hematocrit 35.4 % Mean Corpuscular Volume 76.1 fL Mean Corpuscular Hemoglobin 25.6 pg Mean Corpuscular Hemoglobin Concent 33.6 g/dl Platelet Count 302 K/uL Mean Platelet Volume 10.6 fL Neutrophils (%) (Auto) 81.8 % Lymphocytes (%) (Auto) 16.8 % Monocytes (%) (Auto) 1.0 % Eosinophils (%) (Auto) 0.0 % Basophils (%) (Auto) 0.2 % Neutrophils # (Auto) 4.04 K/uL Lymphocytes # (Auto) 0.83 K/uL Monocytes # (Auto) 0.05 K/uL Eosinophils # (Auto) 0.00 K/uL Basophils # (Auto) 0.01 K/uL HbA1c Test 05/23/16 05:20 Hemoglobin A1c 6.6 % (4.5-5.6) H Recent Pertinent Medications Outpatient Anti-diabetic Regimen: * n/a * A1c = 6.6 % 05/23/16 The patient is currently receiving: * Basal insulin: none at time of consult * Correctional Insulin: NovoLog Correction per scale AC/HS Goal Range: Low 120 mg/dL - High 160 mg/dL Correction Factor: 35 mg/dL/unit * Prandial insulin: Per carb ratio of 1 unit per 15 grams CHO consumed Risk Factors for Insulin Resistance: * Steroids: Solu-Medrol 40mg IV every 6 hours * Diet: regular/t2dm Assessment & Plan ASSESSMENT: * ADA & AACE recommend a goal blood sugar range 140-180 mg/dl for the majority of critically ill & non-critically ill patients. However, more stringent targets may be selected in individual cases. * Lower goal range will be used at this time as patient is non-geriatric and has good outpatient glycemic control. 05/24/16 * 55 y/o who does not take anything for "pre-diabetes" as an outpatient * A1c starting to creep upwards toward "diabetic" range * BSG WNL upon admission * Steroids started and presume BSGs will become elevated secondary to this * begin basal/bolus insulin regimen based on weight * Marian is insulin naive and likely will have higher sensitivity to its affects * conservative dosing and titrate as needed * A1c is current PLAN FOR INPATIENT GLYCEMIC CONTROL: * Lantus SQ BID * 0 units if BSG is less than 120mg/dL * 5 units if BSG is 120-160mg/dL * 10 units if BSG is above 160mg/dL * NovoLog SQ AC and HS * Correction factor: 30mg/dL/unit * Carb ratio: 1 unit per 10g of CHO consumed * Goal range: 110-140mg/dL * A1c - current * add to discharge instructions * Please note that the plan above was derived based on current level of insulin resistance and hospital stress. These recommendations are appropriate for inpatient admission only. Plan of care upon discharge will need to be reassessed to avoid potential outpatient hypo/hyperglycemia. Thank you.
[2016-05-24] MEDS ORDERED: HYDROCODONE/ACETAMOPHEN 5/325MG TAB PO PRN (10:45)
--- NOTE | 2016-05-24 11:35 | Hospitalist Progress Note ---
Hospitalist Progress Note Date of Service May 24, 2016. Subjective Pt evaluation today including: conversation w/ patient, physical exam, chart review, lab review, review of studies, review of inpatient medication list Patient having chest pain with cough and deep breath, but is improving since starting steroid. She ruled out from [place]. I reviewed cardiac cath result from [facility] that was 2 years prior showing NO blockages. She is planned to have an outpatient urologic surgery on 06/03 and was to have PFTs prior. She missed these at [facility] pulmonology office yesterday as she was admitted. Nursing and I are not sure if these are performed as an inpatient or if should even be performed in the face of pleuritic chest pain. I will ask pulmonary for opinion and advice. Additional Comments: A 10 system review was performed and all were negative. Positives were placed in the subjective section. Objective Vital Signs Date Time Temp Pulse Resp B/P Pulse Ox O2 Delivery O2 Flow Rate FiO2 05/24/16 07:00 36.7 97 17 163/108 93 Room Air 05/24/16 04:11 36.6 108 18 138/80 94 05/24/16 04:00 Room Air 05/24/16 00:00 36.7 102 18 152/81 96 Room Air CPAP 05/24/16 00:00 Room Air 05/23/16 20:00 Room Air 05/23/16 19:40 36.7 93 27 142/88 95 Room Air 05/23/16 15:30 36.7 98 21 168/104 95 Room Air 05/23/16 12:00 Room Air 05/23/16 11:55 36.6 86 18 142/91 94 Room Air Physical Exam Notes: GEN: Awake, alert, and oriented x 3. Not in acute distress HEENT: Tm's intact, no inflammation, EOMI, PERRLA, MMM Neck: Soft, supple Lungs: Essentially clear, just minimal expiratory wheezes b/l. Heart: REG, nrl S1S2 without murmurs, rubs or gallops Abdomen: Soft, NT, ND, + BS EXT: No C/C/E NEURO: CN's II-XII grossly intact, non-focal Skin: warm, dry, no rashes PSYCH: pleasant, cooperative. Laboratory Results Last 24 Hours Test 05/23/16 11:22 05/23/16 16:01 05/23/16 20:15 05/24/16 02:35 Bedside Glucose 98 mg/dl 108 mg/dl 99 mg/dl 185 mg/dl Test 05/24/16 05:37 05/24/16 06:50 White Blood Count 4.94 K/uL Red Blood Count 4.65 M/uL Hemoglobin 11.9 g/dL Hematocrit 35.4 % Mean Corpuscular Volume 76.1 fL Mean Corpuscular Hemoglobin 25.6 pg Mean Corpuscular Hemoglobin Concent 33.6 g/dl Platelet Count 302 K/uL Mean Platelet Volume 10.6 fL Neutrophils (%) (Auto) 81.8 % Lymphocytes (%) (Auto) 16.8 % Monocytes (%) (Auto) 1.0 % Eosinophils (%) (Auto) 0.0 % Basophils (%) (Auto) 0.2 % Neutrophils # (Auto) 4.04 K/uL Lymphocytes # (Auto) 0.83 K/uL Monocytes # (Auto) 0.05 K/uL Eosinophils # (Auto) 0.00 K/uL Basophils # (Auto) 0.01 K/uL RDW Standard Deviation 41.7 fL RDW Coefficient of Variation 14.9 % Immature Granulocyte % (Auto) 0.2 % Immature Granulocyte # (Auto) 0.01 K/uL Erythrocyte Sedimentation Rate 31 mm/hr Sodium Level 138 mmol/L Potassium Level 3.4 mmol/L Chloride Level 102 mmol/L Carbon Dioxide Level 22 mmol/L Anion Gap 14.0 mmol/L Blood Urea Nitrogen 13 mg/dl Creatinine 1.00 mg/dl Est Creatinine Clear Calc Drug Dose 78.4 ml/min Estimated GFR () 73.5 Estimated GFR (Non- 63.4 BUN/Creatinine Ratio 12.5 Random Glucose 180 mg/dl Calcium Level 9.0 mg/dl Bedside Glucose 171 mg/dl Assessment and Plan 1) Pleurisy - stemming from viral illness 7-10 days prior. Some improvement overnight. Changed morphine to Toradol for severe pain. 2) HTN - monitoring after I added Toprol yesterday. 3) COPD - I feel this is stable. She did apparently miss scheduled PFTs yesterday through pulmonary office. I will ask Dr. Parada for recommendations. 4) Type II DM - Pre-diabetes according to patient. A1C was 6.6. 5) Recent viral respiratory illness - cough is much improved today. D/C likely tomorrow (she reports not having transportation today due to snow) She lives in [facility]. Heparin for DVT prophylaxis.
[2016-05-24] MEDS: KETOROLAC TROMETHAMINE 30 MG/ML VIAL IV. PRN ×2 (11:38→20:57)
[2016-05-24] MEDS: INSULIN GLARGINE SOLOSTAR 100 UNITS/ML 3 ML PEN SC SCH ×2 (11:48→21:04)
[2016-05-24] MEDS ORDERED: POTASSIUM CHLORIDE 10 MEQ TABCR PO ONE (12:00)
[2016-05-24] MEDS ORDERED: HYDROmorphone INJ 1 MG/ML SYR ONE (14:53)
[2016-05-24] MEDS ORDERED: LEVOFLOXACIN / D5W 750 MG in PREMIXED IN D5W 150 ML IV SCH (16:00)
--- NOTE | 2016-05-24 16:23 | PULMONARY CONSULTATION ---
DATE OF CONSULTATION: 05/24/2016 TIME: 02:10 p.m. HISTORY OF PRESENT ILLNESS: The patient was seen in room 420. She is a 55-year-old female who was admitted to the hospital on the . She states that she came for some preoperative testing. She is scheduled to have a bladder surgery on June 03. She describes it as a stretching procedure. Her urinary symptom is frequent urination, especially at nights. She has been having pain in the chest. The pain is described as in the upper sternum. She says it is precipitated by coughing, talking, or with deep breathing. It has been present for 1-2 weeks. When she went for the outpatient tests and they heard her history, they referred her to the Emergency Room. She has undergone an evaluation here and it was not felt to be cardiac in nature. She did describe some type of a respiratory tract infection a couple of weeks earlier. She is still coughing more than normal. She is expectorating some sputum, which is yellow based upon my observing the sputum at the time of this examination. She has not coughed up any blood. She describes the chest pain as severe even now, although she did not appear to be in any distress. The pain radiates somewhat into her neck. She admits to having heartburn, which is bad at times, but she states for the most part when she is on medicines, it is not too bad. She is short of breath with any significant exertion. The patient lives in an apartment. She is all on one floor. She lives by herself, but has 1 cat. The patient states that she has been told that she has asthma and COPD. She has been seeing Avelina Chsiholm PA-C in the office. She was last seen in February. I could not find evidence of prior pulmonary function tests. She was scheduled to have an outpatient PFT yesterday, but it did not happen because she was here in the hospital and having some chest pains. The patient has been on inhalers at home. She tells me she was on Spiriva Respimat. She was also on either Advair or Symbicort and she was on a rescue inhaler. This was according to the patient. She has a nebulizer at home, but she does not use it all that much. It sounds like nebulizer would have albuterol and ipratropium. The patient has sleep apnea. The diagnosis was made in [place]. She thinks her pressure might be 11 cm. I do not think she is compliant wearing her CPAP. She uses a mask with nasal pillows. Although, she admits that last night wearing one of our masks that covers nose and mouth, she was comfortable. She does have problems with nocturia and she states she may have to urinate 8-9 times at night. The patient has hoarseness. She has some postnasal drip. She has had some chills and sweats. Her appetite is good. She describes having constipation. She complains of some chronic back pains. PAST SURGICAL HISTORY: 1. Hysterectomy. 2. Tubal , both left and right. 3. Removal of a fibroma from the left foot. 4. Removal of a bone from the right foot. PAST MEDICAL HISTORY: 1. Hypertension. 2. Diabetes. 3. Hyperlipidemia. 4. Metabolic syndrome. 5. Obesity. 6. DJD. 7. Carpal tunnel. 8. Kidney stones. 9. Chronic back problems. 10. Sleep apnea. 11. Childbirth x2. SOCIAL HISTORY: Tobacco none since April 2015 and previously less than a pack per day for 30 years. ETOH -- very occasional now, but she admits to heavy alcohol use in the past. ALLERGIES: No known allergies. FAMILY HISTORY: Mother age 72 of bleeding ulcer and heart problems. Father as he in the [place]. REVIEW OF SYSTEMS: Negative except for the above-mentioned complaints. Ten systems were reviewed. PHYSICAL EXAMINATION: GENERAL: The patient is a 55-year-old female who was cooperative, alert and oriented. She did not appear in any distress. VITAL SIGNS: She has been afebrile. Most recent temperature was 36.6. Rate is 103 per minute. Blood pressure is 153/99. Saturation was 97% on room air. HEENT: Pupils were reactive to light. Arcus senilis was noted. Nares were congested bilaterally. She has a pin on the right nostril. Mouth exam showed dentures on top and an absence of teeth on the bottom. The pharynx was somewhat crowded. NECK: She has a large neck. There is increased soft tissue prominence in the supraclavicular areas, but no lymphadenopathy. CHEST: Normal development. She did not seem to have any pain taking a deep breath. LUNGS: Lung skinner revealed just a few scattered rhonchi bilaterally. The aeration was good. Respiratory rate was 20. HEART: She did have a systolic murmur grade 2/6 heard. ABDOMEN: Obese. It was soft and nontender. No masses were palpable. EXTREMITIES: Showed no cyanosis, clubbing or edema. LABORATORY DATA: White count was 4.94. Hemoglobin 11.9. Platelets 302,000. Sed rate was slightly elevated at 31. INR was 1.1 with normal PTT as of May 22. Sodium is 138, potassium 3.4, chloride is 102, and bicarbonate 22. BUN 13 with a creatinine of 1. Blood sugar today 147. AST was low at 14 and ALT was normal at 15 and the alkaline phosphatase was 136, which is mildly elevated. Hemoglobin A1c was 6.6. Troponins were negative x3. IMAGING DATA: Chest x-ray was read as normal. CT angio of the chest showed no evidence of pulmonary embolism. There was no adenopathy and no significant findings. There was a stable 8-mm right upper lobe nodule. This was unchanged from 08/24/2015. IMPRESSION: 1. Chest pain of uncertain etiology. 2. Asthma/chronic obstructive pulmonary disease. 3. Obstructive sleep apnea. 4. Obesity. 5. Right upper lobe nodule -- 8 mm -- unchanged x9 months. COMMENTS AND RECOMMENDATIONS: The patient may have a respiratory tract infection. She is expectorating yellow sputum. Her chest was mildly congested, but not bad. She is not cleared for her surgery, which is tentatively scheduled for June 03. I would treat her with an antibiotic for now. I will repeat a serum IgG level because she had low one in the past. I believe the methylprednisolone could be decreased. She is currently on 40 mg IV q. 6 and probably this could be changed to something like 20 mg IV q. 8. She probably can be discharged relatively soon. She should follow up with Avelina Chisholm and hopefully have PFTs prior to clearing for surgery.
[2016-05-24] MEDS: MONTELUKAST SOD 10 MG TAB PO SCH (20:58)
[2016-05-24] MEDS: LOSARTAN POTASSIUM 50 MG TAB PO SCH (21:00)
[2016-05-25] MEDS: HEPARIN SOD 5000 UNIT/0.5 ML CARP SQ SCH (05:59)
[2016-05-25 06:18] LABS: HEMATOCRIT 33.7 % (37-47); MEAN CELL VOLUME 74.7 fL (80-100); MEAN CORPUSCULAR HEMOGLOBIN 24.8 pg (25-34); MEAN CORPUSCULAR HGB CONC 33.2 g/dl (32-36); PLATELET COUNT 320 K/uL (130-400); RED BLOOD COUNT 4.51 M/uL (4.2-5.4); WHITE BLOOD COUNT 14.78 K/uL (4.8-10.8)
[2016-05-25] MEDS: KETOROLAC TROMETHAMINE 30 MG/ML VIAL IV. PRN ×2 (06:32→12:23)
[2016-05-25 07:11] VITALS: BP 133/89; PULSE 81; TEMP 36.6; O2SAT 96
[2016-05-25] MEDS: [UNRECOGNIZED DRUG - OTHER] SCH ×2 (08:00)
[2016-05-25] MEDS: ALBUTEROL HFA 8 GM INHALER INH SCH ×2 (08:26→12:00)
[2016-05-25] MEDS: FLUTICASONE/SALMETEROL (ADVAIR) 500/50 INH 14 PUFF INH SCH (08:26)
[2016-05-25] MEDS: SUCRALFATE 1 GM TAB PO SCH (08:27)
[2016-05-25] MEDS: GABAPENTIN 300 MG CAP PO SCH ×2 (08:27→12:57)
[2016-05-25] MEDS: FUROSEMIDE 20 MG TAB PO SCH (08:28)
[2016-05-25] MEDS: PANTOprazole SOD 40 MG TAB PO SCH (08:28)
[2016-05-25] MEDS: DULOXETINE HCL 60 MG CAP PO SCH (08:28)
[2016-05-25] MEDS: ATORVASTATIN 40 MG TAB PO SCH (08:29)
[2016-05-25] MEDS: METOPROLOL SUCC 25MG EXT REL TAB PO SCH (08:30)
[2016-05-25] MEDS: NIFEdipine 30 MG CR TAB PO SCH (08:30)
[2016-05-25] MEDS: METHYLPREDNISOLONE IV 40 MG in SYRINGE 0 ML IV SCH (08:31)
[2016-05-25] MEDS: INSULIN GLARGINE SOLOSTAR 100 UNITS/ML 3 ML PEN SC SCH (08:34)
[2016-05-25] MEDS: INSULIN ASPART 100 UNITS/ML 3 ML PEN SC SCH ×2 (08:34→12:32)
[2016-05-25] MEDS ORDERED: NURSING VERBAL MED ORDER ONE (09:45)
[2016-05-25] MEDS ORDERED: BISACODYL 10 MG SUPP PR SCH (09:45)
[2016-05-25] MEDS ORDERED: LEVO1TAB35 PO (11:06)
[2016-05-25] MEDS ORDERED: METH4PAK PO (11:06)
--- NOTE | 2016-05-25 11:15 | Discharge Instructions ---
Discharge Instructions Date of Service May 25, 2016. Admission Reason for Admission: Chest Pain Discharge Discharge Diagnosis / Problem: cough, acute Bronchitis, Discharge Goals Goal(s): Improve function, Improve disease control Activity Recommendations Activity Limitations: resume your previous activity Lifting Limitations: none Exercise/Sports Limitations: as tolerated May Resume Sexual Activity: when tolerated Shower/Bathe: no limitations Driving or Machine Use: no limitations .none Instructions / Follow-Up Instructions / Follow-Up follow with PCP in 1 week Current Hospital Diet Patient's current hospital diet: Regular Diet, Diabetes Type 2 Diet Discharge Diet Recommended Diet: Diabetes Type 2 Diet Fluid Restriction: None Procedures Procedures Performed: none Pending Studies Studies pending at discharge: no Laboratory Results Hemoglobin A1c Test 05/23/16 05:20 Range/Units Estimated Average Glucose 143 mg/dl Hemoglobin A1c 6.6 H 4.5-5.6 % Medical Emergencies . Who to Call and When: Medical Emergencies: If at any time you feel your situation is an emergency, please call 911 immediately. . Non-Emergent Contact Non-Emergency issues call your: Primary Care Provider Call Non-Emergent contact if: temperature is above 101.5, your pain is unusual for you . . "Provider Documentation" section prepared by Efra Pickens. VTE Core Measure Inpt VTE Proph given/why not?: Unfractionated heparin SQ [place] Drug Monitoring Program Search Results: see additional documentation (did not peform PA drug)
[2016-05-25 12:36] VITALS: BP 133/89; PULSE 81; TEMP 36.6; O2SAT 96
--- NOTE | 2016-05-25 18:38 | DISCHARGE SUMMARY ---
This is a 55-year-old female with a Past medical history of COPD, morbid obesity ,hypertension, hyperlipidemia and metabolic syndrome who presented to the ER complaining of atypical chest pain accompanied with shortness of breath,nausea and diaphoresis. The patient was admitted on the tele floor. Cardiology consult was obtained based on patient's atypical chest pain, abnormal EKG with a premature family history. Telemetry monitoring reveals predominantly normal sinus rhythm with occasional PACs and PVCs, Pt labs during hospitalization White count was 4.94. Hemoglobin 11.9. Platelets 302,000. Sed rate was slightly elevated at 31. INR was 1.1 with normal PTT. Sodium is 138, potassium 3.4, chloride is 102, and bicarbonate 22. BUN 13 with a creatinine of 1. Blood sugar today 147. AST was low at 14 and ALT was normal at 15 and the alkaline phosphatase was 136, which is mildly elevated. Hemoglobin A1c was 6.6. Troponin were negative x3. Chest x- ray was read as normal. CT angio of the chest showed no evidence of pulmonary embolism. There was no adenopathy and no significant findings. There was a stable 8-mm right upper lobe nodule. This was unchanged from 08/24/2015. Pulmonary consult was obtained .The patient may have a respiratory tract infection. She is expectorating yellow sputum. Her chest was mildly congested, but not bad. She was not cleared for her surgery, which is tentatively scheduled for June 03 per pulmonary. Pt was treated with an antibiotic and steroids. However with abnormal EKG and premature family history cardiology recommend evaluating an echocardiogram while hospitalized, and we will also acquire her cath report from [facility]. Pt echocardiogram ventricular systolic function is normal. Ejection Fraction = 65-70%. Moderate to severe asymmetric hypertrophy of the basal septum without an outflow gradient.Grade I diastolic dysfunction. Pt was discharge home to follow with her PCP in 1 week as well as she should follow up with Avelina Chisholm and hopefully have PFTs prior to clearing for surgery. Pt was also advise to follow with Cardiology as out patient, no further testing was indicated.Pt left the hospital in stable condition.Pt was given oral antibiotic and Medrol pack. MTDD
[2016-07-03] MEDS ORDERED: ATOR-24 PO (08:28)
[2016-07-03] MEDS ORDERED: ALBU1.257 NEB (08:28)
[2016-07-03] MEDS ORDERED: FLUT1SPR12 (08:28)
[2016-07-03] MEDS ORDERED: INDO-24 PO (08:28)
[2016-07-03] MEDS ORDERED: CEVI1CAP PO (08:28)
[2016-07-03] MEDS ORDERED: METF-841 PO (08:28)
[2016-07-03] MEDS ORDERED: POTA10CA28 PO (08:28)
[2016-07-03] MEDS ORDERED: OMEP40CA41 PO (08:28)
[2016-07-03] MEDS ORDERED: PRM/125 PO (08:28)
[2016-07-03] MEDS ORDERED: NTRGSL/4 UT (08:29)
[2016-07-19] MEDS ORDERED: HYDR-5688 PO (14:20)
== END 2016-05-25 13:00 | disposition home or self-care (01) ==
LOC: ENRESERVDT → ENRESERVTM → CANRESERV → C.EDB 10:52 → C.2E 13:46 → EDBEDREQ 14:21 → C.2E 15:18 → UNDOADMOB 15:18 → C.4E 05-24 12:15
PROVIDERS: ADMIT Internal Medicine; ATTEND Hospitalist
DX: R07.89 Other chest pain (principal); R09.1 Pleurisy; J44.9 Chronic obstructive pulmonary disease, unspecified; G47.33 Obstructive sleep apnea (adult) (pediatric); E11.9 Type 2 diabetes mellitus without complications; K21.9 Gastro-esophageal reflux disease without esophagitis; I10 Essential (primary) hypertension; E66.01 Morbid (severe) obesity due to excess calories; E78.5 Hyperlipidemia, unspecified; E88.81 Metabolic syndrome and other insulin resistance; Z87.891 Personal history of nicotine dependence; Z82.49 Family history of ischemic heart disease and other diseases of the circulatory system; Z79.899 Other long term (current) drug therapy

== ENCOUNTER → 2016-05-22 | Outpatient (CLI) | payer OTHER ==
[~2016-05-22] VITALS: Ht 162.6 cm; Wt 112.7 kg
[~2016-05-22] MED LIST: ACET-749 PO; ADVIN50/60 INH; ALBU1.257 NEB; ALBU1AER9 INH; ATOR-24 PO; BOPS PR; CEVI1CAP PO; CRDCD/180 PO; DILT180C PO; DULO60CA44 PO; FLUT1SPR12; FURO-85 PO; GABA-113 PO; HYDR-3126 PO; HYDR-5688 PO; HYDROZINE PO; INDO-24 PO; INDO75CA PO; LABE200T24 PO; LEVO1TAB35 PO; LOSA100T65 PO; METF-841 PO; METH4PAK PO; MONT1TAB3 PO; NIFE1TAB55 PO; NIFE20CA PO; NIFE60TA57 PO; NTRGSL/4 UT; OMEP40CA41 PO; OXYC1CAP5 PO; PENT100C6 PO; POTA10CA28 PO; PRAV20TA PO; PRLSR20 PO; PRM/125 PO; PRM625 PO; PRT40 PO; SPRIN/30 INH; SUCR1TAB PO; SYMIN160 INH; TIOT1SPR INH; TRIA1SPR4 NAE; TROS1CAP2 PO; VLTG EXT; VNTHFA/IN INH; VSC/5 PO; ZNT150 PO
[2016-05-22 10:17] VITALS: Ht 162.6 cm; Wt 112.7 kg
== END | disposition home or self-care (01) ==
LOC: C.CPL 08:00 → EDSTATUS 06-03 13:44
PROVIDERS: ATTEND Urology
DX: Z01.818 Encounter for other preprocedural examination (principal); N30.10 Interstitial cystitis (chronic) without hematuria

== ENCOUNTER → 2016-06-12 | Outpatient (CLI) | payer OTHER ==
[~2016-06-12] MED LIST changes: +ACET-749 PO; +ALBU1.257 NEB; -ALBU1AER9 INH; +ATOR-24 PO; +BOPS PR; +CEVI1CAP PO; +DILT180C PO; +FLUT1SPR12; +HYDR-3126 PO; +HYDR-5688 PO; -HYDROZINE PO; +INDO-24 PO; -INDO75CA PO; -LABE200T24 PO; +METF-841 PO; -NIFE1TAB55 PO; -NIFE20CA PO; +NTRGSL/4 UT; +OMEP40CA41 PO; -OXYC1CAP5 PO; -PENT100C6 PO; +PRM/125 PO; -PRT40 PO; -SPRIN/30 INH; -SYMIN160 INH; +VLTG EXT; +VNTHFA/IN INH; -VSC/5 PO; -ZNT150 PO
--- NOTE | 2016-06-12 11:21 | DIAGNOSTIC IMAGING REPORT ---
CHEST 2 VIEWS ROUTINE CLINICAL HISTORY: ASTHMA WITH COPD COMPARISON STUDY: Chest radiograph and chest CT May 22, 2016. FINDINGS: Lung volumes are normal. There is no pneumothorax or pleural effusion. There is no consolidation to suggest pneumonia. Study is mildly compromised by suboptimal penetration. Pulmonary vascularity is normal. The cardiomediastinal silhouette is stable. There are cholecystectomy clips. IMPRESSION: No acute cardiopulmonary findings. Electronically signed by: Darío Blake M.D. 06/12/2016 11:20 AM Dictated Date/Time: 06/12/2016 11:17 AM
== END | disposition home or self-care (01) ==
LOC: C.RADBBURG 00:40
PROVIDERS: ATTEND Physician Assistant
DX: J45.909 Unspecified asthma, uncomplicated (principal); J44.9 Chronic obstructive pulmonary disease, unspecified

== ENCOUNTER 2016-07-18 08:47 | Observation (INO) | payer OTHER ==
[2016-07-03 08:29] VITALS: BMI 43.0
--- NOTE | 2016-07-03 09:21 | PAT Medication Instructions ---
Service Date Jul 03, 2016. Current Home Medication List Albuterol Hfa (Ventolin Hfa), 2 PUFFS INH QID Albuterol Sulfate (Albuterol Sulfate), 1 VIAL NEB Q4H PRN for SHORTNESS/WHEEZING Atorvastatin (Lipitor), 40 MG PO QAM Cevimeline Hcl (Cevimeline Hcl), 1 CAP PO TID Diltiazem Hcl Coated Beads (Cardizem Cd), Unknown Dose PO QAM Duloxetine Hcl (Cymbalta), 60 MG PO HS Estrogens, Conjugated (Premarin), 1.25 MG PO QAM Fluticasone Prop/Salmeterol (Advair Diskus 500/50 60 Dose), 1 PUFF INH QAM Fluticasone Propionate (Nasal) (Flonase Allergy Relief Ch), 2 SPRAYS NA HS Furosemide (Lasix), 20 MG PO QAM Gabapentin (Neurontin), 600 MG PO TID Hydroxyzine Hcl (Atarax), 50 MG PO TID PRN for itching or nerves Indomethacin (Indocin), 50 MG PO BID Losartan Potassium (Cozaar), 100 MG PO HS Metformin HCl (Metformin HCl ER), 1 TAB PO QAM Montelukast Sodium (Singulair), 10 MG PO QAM Nitroglycerin (Nitrostat), 0.4 MG UT PRN Omeprazole (Prilosec), 40 MG PO QAM Potassium Chloride (Micro-K Ext Rel), 10 MEQ PO QAM Sucralfate (Sucralfate), 1 GM PO QID Tiotropium Butler Monohydrate (Spiriva Respimat), 2 PUFFS INH BID Trospium Chloride (Trospium Chloride Er), 1 CAP PO HS Medication Instructions For Your Scheduled Surgery Estrogens, Conjugated (Premarin), 1.25 MG PO QAM (patient will check with surgeon for instructions) Indomethacin (Indocin), 50 MG PO BID (patient will check with surgeon for instructions) Nitroglycerin (Nitrostat), 0.4 MG UT PRN (if needed) - Hold the following medications 48 hours prior to surgery: Metformin HCl (Metformin HCl ER), 1 TAB PO QAM - Hold the following medications evening prior to surgery: Losartan Potassium (Cozaar), 100 MG PO HS - Hold the following medications the morning of surgery: Sucralfate (Sucralfate), 1 GM PO QID Potassium Chloride (Micro-K Ext Rel), 10 MEQ PO QAM Furosemide (Lasix), 20 MG PO QAM Cevimeline Hcl (Cevimeline Hcl), 1 CAP PO TID - Take the following medications the morning of surgery with a sip of water: Tiotropium Butler Monohydrate (Spiriva Respimat), 2 PUFFS INH BID Omeprazole (Prilosec), 40 MG PO QAM Montelukast Sodium (Singulair), 10 MG PO QAM Hydroxyzine Hcl (Atarax), 50 MG PO TID PRN for itching or nerves (if needed) Gabapentin (Neurontin), 600 MG PO TID Fluticasone Prop/Salmeterol (Advair Diskus 500/50 60 Dose), 1 PUFF INH QAM Diltiazem Hcl Coated Beads (Cardizem Cd), Unknown Dose PO QAM Atorvastatin (Lipitor), 40 MG PO QAM Albuterol Hfa (Ventolin Hfa), 2 PUFFS INH QID (bring with you to hospital on day of surgery) Albuterol Sulfate (Albuterol Sulfate), 1 VIAL NEB Q4H PRN for SHORTNESS/ WHEEZING (if needed) - Take the following medications as scheduled the night before surgery: Trospium Chloride (Trospium Chloride Er), 1 CAP PO HS Tiotropium Butler Monohydrate (Spiriva Respimat), 2 PUFFS INH BID Sucralfate (Sucralfate), 1 GM PO QID Hydroxyzine Hcl (Atarax), 50 MG PO TID PRN for itching or nerves Gabapentin (Neurontin), 600 MG PO TID Fluticasone Propionate (Nasal) (Flonase Allergy Relief Ch), 2 SPRAYS NA HS Duloxetine Hcl (Cymbalta), 60 MG PO HS Albuterol Hfa (Ventolin Hfa), 2 PUFFS INH QID Albuterol Sulfate (Albuterol Sulfate), 1 VIAL NEB Q4H PRN for SHORTNESS/ WHEEZING Cevimeline Hcl (Cevimeline Hcl), 1 CAP PO TID If you have any questions please call us at [phone] or [phone] ( [place]) or [phone]
[2016-07-03 10:02] LABS: BASO % 0.4 %; BASO ABS # 0.03 K/uL (0-0.2); COMPLETE YES; EOS % 2.1 %; HEMATOCRIT 34.7 % (37-47); IG% 0.1 %; LYMPH % 28.1 %; LYMPH ABS # 2.15 K/uL (1.2-3.4); MEAN CELL VOLUME 77.1 fL (80-100); MEAN CORPUSCULAR HEMOGLOBIN 24.9 pg (25-34); MEAN CORPUSCULAR HGB CONC 32.3 g/dl (32-36); MEAN PLATELET VOLUME 10.7 fL (7.4-10.4); MONO % 7.1 %; NEUT % 62.2 %; PLATELET COUNT 296 K/uL (130-400); WHITE BLOOD COUNT 7.65 K/uL (4.8-10.8)
[2016-07-03 10:06] LABS: URINE APPEARANCE CLEAR (CLEAR); URINE BILIRUBIN NEG (NEG); URINE COLOR YELLOW; URINE EPITHELIAL CELL AUTO >30 /lpf (0-5); URINE NITRITE NEG (NEG); URINE PH 6.5 (4.5-7.5); URINE SPECIFIC GRAVITY 1.024 (1.000-1.030); UROBILINOGEN NEG (NEG)
[2016-07-03 10:08] LABS: MANUAL MICROSCOPIC REQUIRED? NO; REVIEW REQ? YES
[2016-07-03 11:17] LABS: BUN/CREATININE RATIO 12.8 (10-20); CALCIUM 8.7 mg/dl (8.5-10.1); CREATININE 1.1 mg/dl (0.60-1.20); POTASSIUM 3.3 mmol/L (3.5-5.1)
[2016-07-18] VITALS (14 sets, daily range): BP systolic 139–190; BP diastolic 69–140; PULSE 91–99; TEMP 36.5–36.8; O2SAT 94–99; Ht 162.6 cm; Wt 113.4 kg
[~2016-07-18] VITALS: Ht 162.6 cm; Wt 113.4 kg
[~2016-07-18 08:47] MED LIST changes: -ACET-749 PO; -BOPS PR; +CIPROFLOXACIN / D5W 400 MG IV SCH; -DILT180C PO; -HYDR-5688 PO; +LACTATED RINGER'S 1000ML 1,000 ML IV SCH; -NIFE60TA57 PO; -PRAV20TA PO; -PRLSR20 PO; -PRM625 PO; -TRIA1SPR4 NAE; -VLTG EXT
[2016-07-18] MEDS ORDERED: ATROPINE SULFATE 0.1 MG/ML 5ML SYR IV PRN (10:15)
[2016-07-18] MEDS ORDERED: ONDANSETRON INJ 2 MG/ML 2 ML VIAL IV PRN ×2 (10:15→14:30)
[2016-07-18] MEDS ORDERED: EpHEDrine SULFATE INJ 50 MG/ML AMP IV PRN (10:15)
--- NOTE | 2016-07-18 10:35 | History & Physical Bridge Note ---
H&P Re-Evaluation Bridge Note: I have examined the patient, reviewed the History & Physical and in the interval since the performance of the History & Physical I have noted the following changes of clinical significance: No changes noted
--- NOTE | 2016-07-18 10:41 | DIAGNOSTIC IMAGING REPORT ---
WRIST MIN 3 VIEWS ROUTINE CLINICAL HISTORY: Right wrist pain status post trauma COMPARISON: None. DISCUSSION: No acute fractures or dislocations are visualized. IMPRESSION: No fractures identified. Electronically signed by: Jean Paul Arreguin M.D. 07/18/2016 10:40 AM Dictated Date/Time: 07/18/2016 10:39 AM
[2016-07-18] MEDS ORDERED: FENTANYL CITRATE INJ 50 MCG/1 ML 2 ML VIAL ONE ×2 (10:47→11:11)
[2016-07-18] MEDS ORDERED: LIDOCAINE VISCOUS 2% 100ML ONE (10:47)
[2016-07-18] MEDS ORDERED: MIDAZOLAM HCL 1 MG/ML 2ML VIAL ONE (10:48)
[2016-07-18] MEDS ORDERED: LIDOCAINE HCL 2% LOCAL 50ML VIAL ONE (10:55)
[2016-07-18] MEDS ORDERED: PROPOFOL IV EMULSION 10 MG/ML 20 ML VIAL IV ONE ×2 (11:11→11:22)
[2016-07-18] MEDS ORDERED: LIDOCAINE HCL 2% 2 ML VIAL (20MG/ML) ONE ×2 (11:11→11:22)
[2016-07-18] MEDS ORDERED: BELLADONNA/OPIUM SUPP 60 MG SUPP PR ONE (11:19)
[2016-07-18] MEDS ORDERED: DEXAMETHASONE SOD INJ 4 MG/ML VIAL ONE (11:22)
[2016-07-18] MEDS ORDERED: ONDANSETRON INJ 2 MG/ML 2 ML VIAL ONE (11:22)
--- NOTE | 2016-07-18 11:32 | [facility] Post Operative Brief Note ---
Immediate Operative Summary Operative Date July 18, 2016. Pre-Operative Diagnosis Interstitial cystitis, bladder pain and urinary frequency Post-Operative Diagnosis Same as preoperative diagnosis Procedure(s) Performed Cystoscopy, Hydrodistension Surgeon Dr. Calvin Ice Cutter Surgeon(s) None Estimated Blood Loss 0 mL Findings Fairly good bladder capacity (600cc). No significant glomerulations after hydrodistending to 800cc. Healthy appearing bladder. Slight amount of urethral prolapse. Specimens No pathology specimens per surgeon Drains none Anesthesia Gen Complication(s) None Disposition Recovery Room / PACU (stable)
[2016-07-18] MEDS ORDERED: BOPS PR (11:33)
[2016-07-18] MEDS ORDERED: ACET-749 PO (11:33)
[2016-07-18] MEDS ORDERED: SODIUM CHLORIDE 0.9% 1000ML 1,000 ML IV SCH (11:36)
--- NOTE | 2016-07-18 11:36 | Discharge Instructions ---
Discharge Instructions Date of Service July 18, 2016. Admission Reason for Admission: Voiding Dysfunction Discharge Discharge Diagnosis / Problem: voiding dysfunction Discharge Goals Goal(s): Decrease discomfort, Improve function, Increase independence, Improve disease control, Prevent Disease Progression Activity Recommendations Activity Limitations: resume your previous activity Lifting Limitations: none Exercise/Sports Limitations: none May Resume Sexual Activity: when tolerated Shower/Bathe: no limitations Driving or Machine Use: no limitations . Discharge Diet Recommended Diet: Regular Diet Procedures Procedures Performed: Cystoscopy, Hydrodistension Pending Studies Studies pending at discharge: no Laboratory Results Hemoglobin A1c Test 05/23/16 05:20 Range/Units Estimated Average Glucose 143 mg/dl Hemoglobin A1c 6.6 H 4.5-5.6 % Medical Emergencies . Who to Call and When: Medical Emergencies: If at any time you feel your situation is an emergency, please call 911 immediately. . Non-Emergent Contact Non-Emergency issues call your: Urologist Call Non-Emergent contact if: you have a fever, temperature is above 101.5, your pain is not controlled, your pain is worsening . . "Provider Documentation" section prepared by Anand Acuña. . VTE Core Measure Inpt VTE Proph given/why not?: Treatment not indicated [place] Drug Monitoring Program Search Results: patient reviewed within database, no issues identified
[2016-07-18] MEDS ORDERED: OXYCODONE/ACETAMINOPHEN 5-325 TAB PO PRN (11:45)
[2016-07-18] MEDS: FENTANYL CITRATE INJ 50 MCG/1 ML 2 ML VIAL IV PRN ×4 (11:50→12:25)
[2016-07-18] MEDS ORDERED: NURSING VERBAL MED ORDER ONE ×2 (12:00→12:45)
[2016-07-18] MEDS ORDERED: METOPROLOL TARTRATE 1 MG/ML VIAL ONE (12:00)
[2016-07-18] MEDS ORDERED: METOPROLOL TARTRATE 1 MG/ML VIAL IV ONE (13:00)
[2016-07-18] MEDS ORDERED: DiphenhydrAMINE HCL 50 MG/ML VIAL ONE (13:01)
--- NOTE | 2016-07-18 13:18 | Anesthesiology Progress Note ---
Anesthesia Post Op Note Date & Time July 18, 2016 at 13:08 Vital Signs Pain Intensity: 0 Vital Signs Past 12 Hours Date Time Temp Pulse Resp B/P Pulse Ox O2 Delivery O2 Flow Rate FiO2 07/18/16 13:02 36.8 92 19 143/92 98 Nasal Cannula 2 07/18/16 12:58 97 13 07/18/16 12:58 97 13 99 07/18/16 12:58 97 13 99 07/18/16 12:58 97 13 07/18/16 12:55 142/91 07/18/16 12:55 142/91 07/18/16 12:53 106 18 98 07/18/16 12:53 92 18 07/18/16 12:53 106 18 98 07/18/16 12:53 92 18 07/18/16 12:50 148/91 07/18/16 12:50 148/91 07/18/16 12:48 93 22 07/18/16 12:48 93 22 07/18/16 12:48 96 22 98 07/18/16 12:48 96 22 98 07/18/16 12:45 133/98 07/18/16 12:45 133/98 07/18/16 12:43 93 14 07/18/16 12:43 92 14 97 07/18/16 12:43 92 14 97 07/18/16 12:43 93 14 07/18/16 12:40 147/93 07/18/16 12:40 147/93 07/18/16 12:38 89 19 07/18/16 12:38 90 19 96 07/18/16 12:38 90 19 96 07/18/16 12:38 89 19 07/18/16 12:35 146/99 07/18/16 12:35 146/99 07/18/16 12:33 87 11 07/18/16 12:33 87 11 07/18/16 12:33 91 11 97 07/18/16 12:33 91 11 97 07/18/16 12:30 148/91 07/18/16 12:30 148/91 07/18/16 12:28 91 18 07/18/16 12:28 91 18 97 07/18/16 12:28 91 18 97 07/18/16 12:28 91 18 07/18/16 12:25 138/86 07/18/16 12:25 138/86 07/18/16 12:23 91 15 07/18/16 12:23 91 15 07/18/16 12:23 90 15 130/96 07/18/16 12:23 90 15 130/96 07/18/16 12:20 153/108 07/18/16 12:20 153/108 07/18/16 12:18 92 13 07/18/16 12:18 92 13 100 07/18/16 12:18 92 13 07/18/16 12:18 92 13 100 07/18/16 12:15 178/111 07/18/16 12:15 178/111 07/18/16 12:13 92 12 07/18/16 12:13 92 12 100 07/18/16 12:13 92 12 07/18/16 12:13 92 12 100 07/18/16 12:11 167/104 07/18/16 12:11 167/104 07/18/16 12:10 168/116 07/18/16 12:10 168/116 07/18/16 12:08 92 13 07/18/16 12:08 92 13 07/18/16 12:08 93 13 99 07/18/16 12:08 93 13 99 07/18/16 12:05 168/118 07/18/16 12:05 168/118 07/18/16 12:03 100 13 99 07/18/16 12:03 100 13 99 07/18/16 12:03 97 13 07/18/16 12:03 97 13 07/18/16 12:02 152/105 07/18/16 12:02 152/105 07/18/16 12:02 93 168/118 07/18/16 12:00 144/118 07/18/16 12:00 144/118 07/18/16 11:58 101 21 100 07/18/16 11:58 101 21 100 07/18/16 11:58 97 21 07/18/16 11:58 97 21 07/18/16 11:55 171/109 07/18/16 11:55 171/109 07/18/16 11:53 98 10 07/18/16 11:53 99 10 100 07/18/16 11:53 99 10 100 07/18/16 11:53 98 10 07/18/16 11:50 163/110 5/4/17 11:50 163/110 07/18/16 11:48 98 13 100 07/18/16 11:48 98 13 07/18/16 11:48 98 13 07/18/16 11:48 98 13 100 07/18/16 11:45 163/99 07/18/16 11:45 163/99 07/18/16 11:43 100 15 99 07/18/16 11:43 100 15 07/18/16 11:43 100 15 07/18/16 11:43 100 15 99 07/18/16 11:40 154/107 07/18/16 11:40 154/107 07/18/16 11:38 99 18 07/18/16 11:38 99 18 99 07/18/16 11:38 99 18 07/18/16 11:38 99 18 99 07/18/16 11:38 36.8 103 16 154/107 100 Mask 10 07/18/16 09:20 36.7 97 20 161/82 98 Room Air Notes Mental Status: alert / awake / arousable, participated in evaluation Pt Amnestic to Procedure: Yes Nausea / Vomiting: adequately controlled Pain: adequately controlled Airway Patency, RR, SpO2: stable & adequate BP & HR: stable & adequate Hydration State: stable & adequate Anesthetic Complications: no major complications apparent Pt reported having chest pain/pressure in PACU. I personally evaluated the patient. Pt's substernal pain was exacerbated with palpation. A 12 lead EKG was ordered, which showed no significant change from her most recent EKG. The patient was hypertensive and tachycardic, BP 160/110 and hr 100s. Pt was titrated fentanyl IV and was given 2 separate doses of metoprolol 2.5mg. Pt's vital signs normalized with BP 140/70 and HR 80s. The pt reported having much improved chest pressure/pain. I spoke with Dr. Calvin, and we were in agreement that the pt's pain was likely not cardiac related. I had an extensive discussion with the patient, and I recommended that the patient immediately return to the hospital if her chest pain worsened or if she developed shortness of breath or lightheadedness. The pt was stable for discharge from PACU. The plan was to have the patient observed in ASU 1, and assuming her symptoms did not return or worsen, the patient would otherwise be stable to be discharged home. I spoke with the patient about the plan, and she was understanding.
[2016-07-18] MEDS ORDERED: ACETAMINOPHEN 325 MG TAB PO PRN ×2 (14:00→14:30)
[2016-07-18] MEDS ORDERED: BELLADONNA/OPIUM SUPP 60 MG SUPP PR PRN (14:00)
[2016-07-18] MEDS ORDERED: ACETAMINOPHEN/CODEINE 300/30MG TAB PO PRN ×2 (14:00)
[2016-07-18] MEDS ORDERED: NITROGLYCERIN 0.4 MG SL PER TAB CHARGE UT PRN (14:00)
[2016-07-18] MEDS ORDERED: ALBUTEROL 0.083% NEBU SOLN 3 ML VIAL INH PRN (14:00)
--- NOTE | 2016-07-18 14:06 | OPERATIVE REPORT ---
DATE OF OPERATION: 07/18/2016 PREOPERATIVE DIAGNOSES: Urinary frequency and bladder pain. POSTOPERATIVE DIAGNOSES: Urinary frequency and bladder pain. PROCEDURES PERFORMED: Cystoscopy, bladder hydrodistention and instillation of lidocaine. ANESTHESIA: General. ESTIMATED BLOOD LOSS: 0. URINE OUTPUT: Not recorded. SPECIMENS: There were no specimens. DRAINS: There were no drains. DESCRIPTION OF THE PROCEDURE: Marian Rogel was identified in the preoperative holding area. Appropriate informed consents were reviewed and completed and the patient was transported to the operating suite. Upon arrival, she received appropriate preoperative antibiotics in the form of ciprofloxacin. Adequate general anesthesia was achieved and the patient was placed in dorsolithotomy position where she was sterilely prepped and draped in standard fashion. I began the case by gently passing a 22-Albanian cystoscope with 30-degree lens. Full 30 and 70 degree lens inspection of the bladder was carried out without any identification of abnormalities. Of note, she appears to have appropriate capacity, estimated to have 500 mL of urine in her bladder at the time of entry. I drained her completely and then refilled her to a total of 900 mL, observing the bladder as I filled. There were no glomerulations appreciated and no significant trabeculations. I left this distended for approximately 8 minutes before draining the bladder completely. I then refilled the bladder and observed and saw no further glomerulations or changes in the bladder wall. I redistended her briefly and then emptied her again. Before concluding the case, I withdrew the cystoscope and I passed a 16-Albanian Bryant catheter and utilized this to instill lidocaine infused sterile water treatment into her bladder. I then removed the catheter leaving 200 mL of this mixture in the bladder. The case was subsequently concluded and the patient was transported to the operating suite. I attest to the content of the Intraoperative Record and any orders documented therein. Any exceptio ns are noted below.
[2016-07-18] MEDS ORDERED: MoRPHine SULFATE 2 MG/ML CARP ONE (14:07)
--- NOTE | 2016-07-18 14:10 | Progress Note ---
Progress Note Date of Service July 18, 2016. Progress Note I took over care of this patient from Dr Marie on her discharge from [facility] PACU. Called by nurse secondary to recurring pain. Previously the pain responded in PACU to narcotics and metoprolol. A 12 lead ECG shows no changes from preop. Patient complains the the pain is constant and is associated with dyspnea. Her diastolic BP has again risen above 100. She tells me that she has not taken her meds since Friday. Cardiopulmonary exam was unremarkable. I discussed with the patient that given her history and comorbidities along with her uncontrolled HTN it would be best to observe her overnight on telemetry to rule out the slim possibility that this is developing myocardial ischemia. The patient asked specifically for morphine and so I will give her a small dose before she goes to the floor. I spoke with a residential property consultant from internal medicine who will see the patient and Dr Calvin will admit the patient for observation.
[2016-07-18] MEDS ORDERED: ALUMINUM/MAGNESIUM/SIMETH (MAALOX MAX) 30 ML UDC PO PRN (14:30)
[2016-07-18] MEDS ORDERED: MAGNESIUM HYDROXIDE SUSP 30 ML UDC PO PRN (14:30)
[2016-07-18] MEDS ORDERED: POLYETHYLENE (MIRALAX) 17 GM PACK PO PRN (14:30)
--- NOTE | 2016-07-18 15:02 | History and Physical ---
History & Physical Date & Time of Service: July 18, 2016 at 14:54 Chief Complaint: Voiding Dysfunction Primary Care Physician: Cheo Sage M.D. Past Medical/Surgical History Medical Problems: (1) Arthritis Status: Chronic (2) Carpal tunnel syndrome Status: Chronic (3) COPD (chronic obstructive pulmonary disease) Status: Chronic (4) Diabetes Status: Chronic (5) Hypertension Status: Chronic (6) Kidney stone Status: Resolved Family History Heart disease Social History Smoking Status: Former Smoker Drug Use: none Marital Status: Occupational Status: unemployed Multi-Drug Resistant Organisms History of MDRO: No Allergies Coded Allergies: NO KNOWN DRUG ALLERGIES (Verified Allergy, Mild, ., 07/18/16) Pomegranate (Verified Allergy, Mild, itch, 07/18/16) Home Medications Scheduled Albuterol Hfa (Ventolin Hfa), 2 PUFFS INH QID Atorvastatin (Lipitor), 40 MG PO QAM Cevimeline Hcl (Cevimeline Hcl), 1 CAP PO TID Diltiazem Hcl Coated Beads (Cardizem Cd), Unknown Dose PO QAM Duloxetine Hcl (Cymbalta), 60 MG PO HS Estrogens, Conjugated (Premarin), 1.25 MG PO QAM Fluticasone Prop/Salmeterol (Advair Diskus 500/50 60 Dose), 1 PUFF INH QAM Fluticasone Propionate (Nasal) (Flonase Allergy Relief Ch), 2 SPRAYS NA HS Furosemide (Lasix), 20 MG PO QAM Gabapentin (Neurontin), 600 MG PO TID Indomethacin (Indocin), 50 MG PO BID Losartan Potassium (Cozaar), 100 MG PO HS Metformin HCl (Metformin HCl ER), 1 TAB PO QAM Montelukast Sodium (Singulair), 10 MG PO QAM Nitroglycerin (Nitrostat), 0.4 MG UT PRN Omeprazole (Prilosec), 40 MG PO QAM Potassium Chloride (Micro-K Ext Rel), 10 MEQ PO QAM Sucralfate (Sucralfate), 1 GM PO QID Tiotropium [place] Monohydrate (Spiriva Respimat), 2 PUFFS INH BID Trospium Chloride (Trospium Chloride Er), 1 CAP PO HS Scheduled PRN Acetaminophen/Codeine (Tylenol W/Codeine #3), 1 TAB PO Q6 PRN for Pain Albuterol Sulfate (Albuterol Sulfate), 1 VIAL NEB Q4H PRN for SHORTNESS/WHEEZING Belladonna/Opium (B & O), 30 MG WV BID PRN for BLADDER SPASMS Hydroxyzine Hcl (Atarax), 50 MG PO TID PRN for itching or nerves Physical Exam Vital Signs Date Time Temp Pulse Resp B/P Pulse Ox O2 Delivery O2 Flow Rate FiO2 07/18/16 14:15 99 20 157/105 99 Nasal Cannula 2 07/18/16 14:00 36.6 96 20 172/104 95 Nasal Cannula 2 07/18/16 13:45 36.6 96 20 163/102 95 Nasal Cannula 2 07/18/16 13:15 36.6 95 20 163/99 95 Nasal Cannula 1 07/18/16 13:02 36.8 92 19 143/92 98 Nasal Cannula 2 07/18/16 12:58 97 13 07/18/16 12:58 97 13 99 07/18/16 12:58 97 13 99 07/18/16 12:58 97 13 07/18/16 12:55 142/91 07/18/16 12:55 142/91 07/18/16 12:53 106 18 98 07/18/16 12:53 92 18 07/18/16 12:53 106 18 98 07/18/16 12:53 92 18 07/18/16 12:50 148/91 07/18/16 12:50 148/91 07/18/16 12:48 93 22 07/18/16 12:48 93 22 07/18/16 12:48 96 22 98 07/18/16 12:48 96 22 98 07/18/16 12:45 133/98 07/18/16 12:45 133/98 07/18/16 12:45 36.6 96 20 163/101 95 Nasal Cannula 1 07/18/16 12:43 93 14 07/18/16 12:43 92 14 97 07/18/16 12:43 92 14 97 07/18/16 12:43 93 14 07/18/16 12:40 147/93 07/18/16 12:40 147/93 07/18/16 12:38 89 19 07/18/16 12:38 90 19 96 07/18/16 12:38 90 19 96 07/18/16 12:38 89 19 07/18/16 12:35 146/99 07/18/16 12:35 146/99 07/18/16 12:33 87 11 07/18/16 12:33 87 11 07/18/16 12:33 91 11 97 07/18/16 12:33 91 11 97 07/18/16 12:30 148/91 07/18/16 12:30 148/91 07/18/16 12:28 91 18 07/18/16 12:28 91 18 97 07/18/16 12:28 91 18 97 07/18/16 12:28 91 18 07/18/16 12:25 138/86 07/18/16 12:25 138/86 07/18/16 12:23 91 15 07/18/16 12:23 91 15 07/18/16 12:23 90 15 130/96 07/18/16 12:23 90 15 130/96 07/18/16 12:20 153/108 07/18/16 12:20 153/108 07/18/16 12:18 92 13 07/18/16 12:18 92 13 100 07/18/16 12:18 92 13 07/18/16 12:18 92 13 100 07/18/16 12:15 178/111 07/18/16 12:15 178/111 07/18/16 12:15 36.5 92 20 139/69 94 Nasal Cannula 1 07/18/16 12:13 92 12 07/18/16 12:13 92 12 100 07/18/16 12:13 92 12 07/18/16 12:13 92 12 100 07/18/16 12:11 167/104 07/18/16 12:11 167/104 07/18/16 12:10 168/116 07/18/16 12:10 168/116 07/18/16 12:08 92 13 07/18/16 12:08 92 13 07/18/16 12:08 93 13 99 07/18/16 12:08 93 13 99 07/18/16 12:05 168/118 07/18/16 12:05 168/118 07/18/16 12:03 100 13 99 07/18/16 12:03 100 13 99 07/18/16 12:03 97 13 07/18/16 12:03 97 13 07/18/16 12:02 152/105 07/18/16 12:02 152/105 07/18/16 12:02 93 168/118 07/18/16 12:00 144/118 07/18/16 12:00 144/118 07/18/16 11:58 101 21 100 07/18/16 11:58 101 21 100 07/18/16 11:58 97 21 07/18/16 11:58 97 21 07/18/16 11:55 171/109 07/18/16 11:55 171/109 07/18/16 11:53 98 10 07/18/16 11:53 99 10 100 07/18/16 11:53 99 10 100 07/18/16 11:53 98 10 07/18/16 11:50 163/110 07/18/16 11:50 163/110 07/18/16 11:48 98 13 100 07/18/16 11:48 98 13 07/18/16 11:48 98 13 07/18/16 11:48 98 13 100 07/18/16 11:45 163/99 07/18/16 11:45 163/99 07/18/16 11:43 100 15 99 07/18/16 11:43 100 15 07/18/16 11:43 100 15 07/18/16 11:43 100 15 99 07/18/16 11:40 154/107 07/18/16 11:40 154/107 07/18/16 11:38 99 18 07/18/16 11:38 99 18 99 07/18/16 11:38 99 18 07/18/16 11:38 99 18 99 07/18/16 11:38 36.8 103 16 154/107 100 Mask 10 07/18/16 09:20 36.7 97 20 161/82 98 Room Air Diagnostics Laboratory Results Results Past 24 Hours Test 07/18/16 09:02 07/18/16 11:56 07/18/16 13:52 Range/Units Bedside Glucose 162 175 217 70-90 mg/dl Impression Assessment and Plan obs #[id number] VTE Prophylaxis VTE Risk Assessment Done? Y/N: Yes Risk Level: Moderate Given or contraindicated: Treatment not indicated
[2016-07-18] MEDS ORDERED: DILT180C PO (15:16)
--- NOTE | 2016-07-18 15:51 | HISTORY & PHYSICAL EXAMINATION ---
DATE OF ADMISSION: 07/18/2016 CHIEF COMPLAINT: Chest pain. HISTORY OF PRESENT ILLNESS: The patient is a pleasant 55-year-old female that I was asked to see by Dr. Calvin. She had a cystoscopy expected to be an outpatient procedure. After this, she woke up complaining of severe left-sided chest pain. She had an EKG that showed no ischemic changes, but she did continue to complain of chest pain and then shortness of breath and then radiation to her jaw. She also as a separate complaint notes that she was trying to not have to get up to pee last night and then when she did get up to void, she fell and she hurt her wrist. Notes that x-rays were done that were negative, but she has ongoing pain. REVIEW OF SYSTEMS: Otherwise negative, except for as above. PAST MEDICAL HISTORY: Includes interstitial cystitis, asthma versus COPD, hypertension, diabetes, hyperlipidemia, arthritis, fibromyalgia. PAST SURGICAL HISTORY: Includes today's procedure, ectopic x2, hysterectomy, foot surgery, cholecystectomy and a fiberoptic bronchoscopy. She had a left heart catheterization at [facility] by Dr. Le that showed per his report reviewed in the chart, no obstructive coronary disease, free of disease in all of her coronaries. ALLERGIES: LISTED POMEGRANATE. SOCIAL HISTORY: She smoked for not quite 30 years. Never more than a pack a day, quitting a little over a year ago. FAMILY HISTORY: Brother of a heart attack at age 42. MEDICATIONS: Her home meds are listed as Tylenol with codeine q. 6 p.r.n. pain, Ventolin q.i.d., albuterol via nebs q. 4 hours p.r.n. shortness of breath or wheeze, Lipitor 40 mg daily, belladonna and opium 30 mg per rectum b.i.d. p.r.n., cevimeline 1 cap t.i.d., diltiazem CD uncertain dose daily, Cymbalta 60 mg at bedtime, Premarin 1.25 daily, Advair 500/50 daily, Flonase 2 sprays nasally at bedtime, Lasix 20 mg daily, gabapentin 600 mg t.i.d., Atarax 50 mg t.i.d. p.r.n. itching, indomethacin 50 mg p.o. b.i.d., losartan 100 mg at bedtime, metformin daily, Singulair 10 mg daily, nitroglycerin 0.4 under the tongue p.r.n., Prilosec 40 mg daily, potassium chloride 10 mEq daily, Carafate 1 gram q.i.d., Spiriva 2 puffs b.i.d., trospium 1 tab at bedtime. PHYSICAL EXAMINATION: VITAL SIGNS: Temperature 36.8, pulse 92, respiratory rate 19, blood pressure 143/92, 98-99% on 2 liters. GENERAL: She is awake, alert, oriented x3, pleasant, appears to be in a mild degree of distress from her chest pain as well as maybe from anxiety from that. HEAD, EYES, EARS, NOSE, AND THROAT: Normocephalic, atraumatic. Mucous membranes are moist. CARDIOVASCULAR: Regular without rubs, murmurs, or gallops. LUNGS: Clear to auscultation bilaterally. No rales, rhonchi, or wheezes with good effort. ABDOMEN: Soft, nondistended, nontender. No masses or organomegaly. EXTREMITIES: Without cyanosis, clubbing or edema. No calf tenderness; however, she does have right wrist tenderness in the anatomic snuffbox although there are no deformities. MUSCULOSKELETAL: Shows the wrist findings as above, also her left upper chest wall shows her ribs to be very tender, decreased range of motion in more of an exhalation pattern compared to the right. Palpation of the rib intercostal spaces reproduces her pain almost exactly and balanced ligamentous tension, ligamentous articular strain and muscle energy techniques were all utilized with improvement in the tissue texture and patient noting almost immediate improvement in her pain as well. NEUROLOGIC: Cranial nerves II-XII to be grossly intact. Gross motor and sensory are intact. MENTAL STATE: Shows good recent and remote recall. Anxious mood and affect. LABORATORIES AND DIAGNOSTICS: Her preop tests showed a CBC of 7.65, hemoglobin 11.2, MCV of 77.1, platelets 296. Sodium 144, potassium 3.3, chloride 107, CO2 29, BUN 14, creatinine 1.1, calcium 8.7, glucose 127. Urinalysis yellow, clear, specific gravity 1.024, greater than 30 epithelial cells. Her wrist x-rays done today were negative. EKG showed sinus rhythm, no ischemic changes. ASSESSMENT AND PLAN: 1. Chest pain. Given that about 2 years ago she had no coronary disease and given that she has no EKG changes now as well as multiple recent hospital stays for chest pain that were negative for less invasive cardiac workups it seems exceedingly unlikely that this would be cardiac pain. Furthermore, it is extremely reproducible and she has somatic dysfunction that fits extremely well with rib related pain and the pain responded nicely to osteopathic manipulative therapy. Would continue treatment with Voltaren gel and I recommended that she follow up with a DO in the [facility] for ongoing rib manipulation given this has been a big ongoing problem that has led to multiple hospitalizations. 2. Rib somatic dysfunction. OMT as above. 3. Right wrist pain. Given that she has pain in the anatomic snuffbox will put a thumb spica splint on her and have her wear it continuously. Follow up with her PCP in about a week. 4. Microcytic anemia. Follow up as an outpatient with her PCP. 5. Chronic obstructive pulmonary disease/asthma. Continue her home inhalers. She does not appear to be in acute exacerbation. 6. Fibromyalgia. Continue her home meds. 7. Hormone replacement therapy. Given her vascular disease risks, I would have her talk with her PCP about hopefully stopping the estrogens, although currently certainly will not do that while she is inpatient. Likewise give considerations to holding her indomethacin. 8. Deep venous thrombosis prophylaxis, Lovenox.
[2016-07-18] MEDS: OXYCODONE/ACETAMINOPHEN 5-325 TAB PO PRN ×2 (16:19→20:24)
[2016-07-18] MEDS: LACTATED RINGER'S 1000ML 1,000 ML IV SCH (16:34)
[2016-07-18] MEDS: GABAPENTIN 600 MG TAB PO SCH ×2 (16:57→23:00)
[2016-07-18] MEDS: SUCRALFATE 1 GM TAB PO SCH ×2 (16:57→20:38)
[2016-07-18] MEDS: INDOMETHACIN 25 MG CAP PO SCH (16:57)
[2016-07-18] MEDS: ALBUTEROL HFA 8 GM INHALER INH SCH ×2 (16:57→20:38)
[2016-07-18] MEDS ORDERED: DICLOFENAC SOD 1% GEL 100 GM TUBE EXT ONE (17:00)
[2016-07-18] MEDS: ENOXAPARIN 40 MG/0.4 ML SYR SQ SCH (18:08)
[2016-07-18] MEDS: DULOXETINE HCL 60 MG CAP PO SCH (20:38)
[2016-07-18] MEDS: DILTIAZEM HCL 30 MG TAB PO PRN (20:38)
[2016-07-18] MEDS: LOSARTAN POTASSIUM 50 MG TAB PO SCH (20:38)
[2016-07-18] MEDS: DICLOFENAC SOD 1% GEL 100 GM TUBE EXT SCH (20:39)
[2016-07-18] MEDS: FLUTICASONE PROPIONATE NA SPR 16 GM BTL SCH (20:39)
[2016-07-18] MEDS: hydrOXYzine HCL 25 MG TAB PO PRN (21:52)
[2016-07-19] VITALS (9 sets, daily range): BP systolic 134–176; BP diastolic 84–113; PULSE 89–98; TEMP 36.5–36.7; O2SAT 93–100
[2016-07-19] MEDS ORDERED: NURSING VERBAL MED ORDER ONE (00:30)
[2016-07-19] MEDS ORDERED: ZOLPIDEM TARTRATE 5 MG TAB PO PRN (00:45)
[2016-07-19] MEDS: DILTIAZEM HCL 30 MG TAB PO PRN ×3 (04:16→16:10)
[2016-07-19] MEDS: OXYCODONE/ACETAMINOPHEN 5-325 TAB PO PRN ×4 (04:17→21:22)
[2016-07-19] MEDS: LACTATED RINGER'S 1000ML 1,000 ML IV SCH ×2 (05:27→17:52)
[2016-07-19 07:13] LABS: BASO % 0.1 %; BASO ABS # 0.01 K/uL (0-0.2); COMPLETE YES; HEMATOCRIT 34.7 % (37-47); IG% 0.4 %; LYMPH % 10.3 %; LYMPH ABS # 1.57 K/uL (1.2-3.4); MEAN CELL VOLUME 76.4 fL (80-100); MEAN CORPUSCULAR HEMOGLOBIN 26.2 pg (25-34); MEAN CORPUSCULAR HGB CONC 34.3 g/dl (32-36); MEAN PLATELET VOLUME 10.8 fL (7.4-10.4); MONO % 5.8 %; NEUT % 83.4 %; PLATELET COUNT 287 K/uL (130-400); RED BLOOD COUNT 4.54 M/uL (4.2-5.4); WHITE BLOOD COUNT 15.21 K/uL (4.8-10.8)
[2016-07-19 07:48] LABS: BUN/CREATININE RATIO 17.5 (10-20); CALCIUM 8.7 mg/dl (8.5-10.1); POTASSIUM 3.6 mmol/L (3.5-5.1)
[2016-07-19] MEDS: DILTIAZEM HCL 180 MG CAPCR PO SCH (07:50)
[2016-07-19] MEDS: FUROSEMIDE 20 MG TAB PO SCH (07:50)
--- NOTE | 2016-07-19 08:12 | Anesthesiology Progress Note ---
Anesthesia Post Op Note Date & Time July 19, 2016 at 08:12 Vital Signs Vital Signs Past 12 Hours Date Time Temp Pulse Resp B/P Pulse Ox O2 Delivery O2 Flow Rate FiO2 07/19/16 07:47 92 164/111 94 Room Air 07/19/16 06:59 36.7 89 17 159/113 100 Room Air 176/108 07/19/16 05:30 134/84 07/19/16 04:13 36.6 98 18 176/108 100 Nasal Cannula 2.0 07/18/16 23:08 36.5 92 17 151/94 95 Room Air 07/18/16 21:04 154/101 Notes Mental Status: alert / awake / arousable, participated in evaluation Pt Amnestic to Procedure: Yes Nausea / Vomiting: adequately controlled Pain: adequately controlled Airway Patency, RR, SpO2: stable & adequate BP & HR: stable & adequate Hydration State: stable & adequate Anesthetic Complications: no major complications apparent
[2016-07-19] MEDS: INDOMETHACIN 25 MG CAP PO SCH ×2 (08:46→17:48)
[2016-07-19] MEDS: DICLOFENAC SOD 1% GEL 100 GM TUBE EXT SCH ×4 (08:47→21:18)
[2016-07-19] MEDS: FLUTICASONE/SALMETEROL (ADVAIR) 500/50 INH 14 PUFF INH SCH (08:48)
[2016-07-19] MEDS: TIOTROPIUM BROMIDE 5 PUFF/90 MCG INH INH SCH (08:49)
[2016-07-19] MEDS: SUCRALFATE 1 GM TAB PO SCH ×4 (08:50→20:52)
[2016-07-19] MEDS: PANTOprazole SOD 40 MG TAB PO SCH (08:51)
[2016-07-19] MEDS: MONTELUKAST SOD 10 MG TAB PO SCH (08:52)
[2016-07-19] MEDS: GABAPENTIN 600 MG TAB PO SCH ×3 (08:52→20:50)
[2016-07-19] MEDS: ATORVASTATIN 40 MG TAB PO SCH (08:53)
[2016-07-19] MEDS: METFORMIN HCL 500 MG TABCR PO SCH (08:54)
[2016-07-19] MEDS: POTASSIUM CHLORIDE 10 MEQ TABCR PO SCH (08:54)
[2016-07-19] MEDS: ALBUTEROL HFA 8 GM INHALER INH SCH ×4 (08:56→20:49)
[2016-07-19] MEDS: hydrOXYzine HCL 25 MG TAB PO PRN ×2 (08:57→21:27)
--- NOTE | 2016-07-19 09:38 | Progress Note ---
Progress Note Date of Service July 19, 2016. Progress Note 55 year old female s/p cystoscopy with hydrodistention. She c/o chest pain post procedure and was admitted for observations. No acute urological issues. Hopeful for d/c home.
[2016-07-19] MEDS: ESTROGENS, CONJUGATED 0.625 MG TAB PO SCH (09:49)
[2016-07-19] MEDS ORDERED: ALPRAZOLAM 0.5 MG TAB PO PRN (13:15)
--- NOTE | 2016-07-19 13:53 | Discharge Instructions ---
Discharge Instructions Date of Service July 19, 2016. Admission Reason for Admission: Chest Pain Discharge Discharge Diagnosis / Problem: Chest Pain Discharge Goals Goal(s): Decrease discomfort, Improve function, Increase independence Activity Recommendations Activity Limitations: resume your previous activity . Instructions / Follow-Up Instructions / Follow-Up Chest Pain: - As this pain is reproducible and you have had extensive cardiac work-up that was negative this pain does not appear to be cardiac in nature. - Would recommend establishing yourself with a doctor that specializes in osteopathic medicine that can perform manipulative therapy - your family doctor can help refer you - In addition, increased stress and poor sleep can exacerbate symptoms such as chest pain. Would recommend findings things to relax or learn deep breathing techniques for relaxation. -- Would also recommend undergoing a sleep study in regards to poor sleep. With insomnia, high blood pressure, and discomfort a question for sleep apnea is raised. Hypertension: - DO NOT SKIP YOUR MEDICATIONS - please be extra vigilant to make sure you do not miss a dose. You blood pressure has improved with your medications and it is important to continue good control of blood pressure to reduce risk of complications such as heart attacks or strokes - Again would recommend a sleep study to evaluate for sleep apnea as this could contribute to your high blood pressure - Twice a day Indomethacin and Estrogen therapy can also increase your blood pressure. Please discuss with your family doctor about alternatives or adjustments in therapy. Right Wrist Pain: - Xray did not show a fracture but would recommend continuing the thumb splint until you see your family doctor Follow-Up: - Please see your family doctor in 7-10 days - Follow-up with urology as needed Current Hospital Diet Patient's current hospital diet: Diabetes Type 2 Diet Discharge Diet Recommended Diet: Diabetes Type 2 Diet Procedures Procedures Performed: Cystoscopy, Hydrodistension Pending Studies Studies pending at discharge: no Laboratory Results Hemoglobin A1c Test 05/23/16 05:20 Range/Units Estimated Average Glucose 143 mg/dl Hemoglobin A1c 6.6 H 4.5-5.6 % Medical Emergencies . Who to Call and When: Medical Emergencies: If at any time you feel your situation is an emergency, please call 911 immediately. . Non-Emergent Contact Non-Emergency issues call your: Primary Care Provider Call Non-Emergent contact if: you have a fever, your pain is concerning you, you have any medication questions . . "Provider Documentation" section prepared by Freya Perales. . VTE Core Measure Inpt VTE Proph given/why not?: Treatment not indicated
[2016-07-19] MEDS ORDERED: VLTG EXT (14:13)
[2016-07-19] MEDS ORDERED: HYDR-5688 PO (14:20)
--- NOTE | 2016-07-19 15:02 | Discharge Summary ---
Discharge Summary Date of Service July 19, 2016. Discharge Summary Admission Date: July 18, 2016 at 14:30 Discharge Date: July 19, 2016 Discharge Disposition: Home Principal Diagnosis: Chest Pain Problems/Secondary Diagnoses: 1. Interstitial Cystitis 2. Asthma vs COPD 3. HTN 4. T2DM 5. HLD 6. Arthritis 7. Fibromyalgia 8. S/P Hysterectomy 9. S/P Cholecystectomy Procedures: 1. WRIST MIN 3 VIEWS ROUTINE DISCUSSION: No acute fractures or dislocations are visualized. IMPRESSION: No fractures identified. Consultations: 1. Urology Medication Reconciliation New Medications: Belladonna/Opium (B & O) 30 Mg Supp 30 MG [place]V BID PRN for BLADDER SPASMS, #30 SUPP Hydrocodone/Acetaminophen 5MG/325MG ([place] 5MG/325MG) Tab 1 TAB PO TID PRN for Pain for 7 Days, #21 TAB PRN PAIN Diclofenac Sod (Voltaren) 100 Appln/100 Gm Gel 1 APPLN EXT QID for 14 Days Continued Medications: Albuterol Hfa (Ventolin Hfa) 200 Puffs/29772 Mcg Aers 2 PUFFS INH QID, #1 INHALER Albuterol Sulfate (Albuterol Sulfate) 1.25 Mg/3 Ml Neb 1 VIAL NEB Q4H PRN for SHORTNESS/WHEEZING Atorvastatin (Lipitor) 40 Mg Tab 40 MG PO QAM, TAB Cevimeline Hcl (Cevimeline Hcl) 30 Mg Cap 1 CAP PO TID Diltiazem Hcl Coated Beads (Diltiazem Hcl Er) 180 Mg Cap 180 MG PO DAILY Duloxetine Hcl (Cymbalta) 60 Mg Cap 60 MG PO HS, CAP Estrogens, Conjugated (Premarin) 1.25 Mg Tab 1.25 MG PO QAM, TAB Fluticasone Prop/Salmeterol (Advair Diskus 500/50 60 Dose) 1 Ea Aerp 1 PUFF INH QAM, INHALER Fluticasone Propionate (Nasal) (Flonase Allergy Relief Ch) 50 Mcg/Act Spr 2 SPRAYS NA HS Furosemide (Lasix) 20 Mg Tab 20 MG PO QAM, TAB PT STATES SHE ONLY TAKES IT WHEN SHE WANTS TO Gabapentin (Neurontin) 300 Mg Cap 600 MG PO TID, CAP Hydroxyzine Hcl (Atarax) 50 Mg Tab 50 MG PO TID PRN for itching or nerves, TAB Indomethacin (Indocin) 50 Mg Cap 50 MG PO BID, #20 CAP WITH FOOD UNTIL PAIN RESOLVES Losartan Potassium (Cozaar) 100 Mg Tab 100 MG PO HS, TAB Metformin HCl (Metformin HCl ER) 1,000 Mg Tab 1 TAB PO QAM Montelukast Sodium (Singulair) 10 Mg Tab 10 MG PO QAM, TAB Nitroglycerin (Nitrostat) 0.4 Mg Tab 0.4 MG UT PRN, BTL Omeprazole (Prilosec) 40 Mg Cap 40 MG PO QAM, CAP Potassium Chloride (Micro-K Ext Rel) 10 Meq Capcr 10 MEQ PO QAM, CAP Sucralfate (Sucralfate) 1 Gm Tab 1 GM PO QID, TAB Tiotropium [place] Monohydrate (Spiriva Respimat) 2.5 Mcg/Act Spr 2 PUFFS INH BID Trospium Chloride (Trospium Chloride Er) 60 Mg Cap 1 CAP PO HS Discharge Exam Review of Systems: Constitutional: No chills, No fever Eyes: No worsening of vision ENT: + sore throat, No nasal symptoms, No trouble swallowing Respiratory: + cough, + shortness of breath (resolved) Cardiovascular: + chest pain Abdomen: + pain (suprapubic), No GI bleeding, No constipation, No diarrhea, No nausea, No vomiting Musculoskeletal: No calf pain, No swelling Genitourinary - Female: + dysuria, + urinary frequency Psychiatric: + anxiety Hematologic / Lymphatic: No abnormal bleeding/bruising Integumentary: No rash Physical Exam: General Appearance: WD/WN, no apparent distress, + obese Eyes: sclerae normal ENT: hearing grossly normal Neck: supple, no JVD, trachea midline Respiratory/Chest: lungs clear, normal breath sounds, no respiratory distress, no accessory muscle use, + pertinent finding (diffuse tenderness to palpation of chest wall) Cardiovascular: regular rate, rhythm, no gallop, no murmur Abdomen / GI: normal bowel sounds, non tender, soft Extremities: no calf tenderness, no pedal edema, + pertinent finding (R hand in thumb spica splint with tenderness in snuffbox; 2+ pulses ) Neurologic/Psychiatric: alert, oriented x 3 Skin: normal color, warm/dry Hospital Course ADMISSION: The patient is a pleasant 55-year-old female that I was asked to see by Dr. Calvin. She had a cystoscopy expected to be an outpatient procedure. After this, she woke up complaining of severe left-sided chest pain. She had an EKG that showed no ischemic changes, but she did continue to complain of chest pain and then shortness of breath and then radiation to her jaw. She also as a separate complaint notes that she was trying to not have to get up to pee last night and then when she did get up to void, she fell and she hurt her wrist. Notes that x-rays were done that were negative, but she has ongoing pain. HOSPITAL COURSE: Ms. Enrique Rogel was admitted after outpatient cystoscopy for chest pain. Upon admission, chest pain was reproducible and no evidence of EKG ischemic changes. Given her risk factors and symptoms she was admitted for observation. Her chest pain initially responded to osteopathic manipulative therapy. Troponins negative. Upon assessment prior to admission she states she still had ongoing chest pain but felt it was because she was anxious due to continued urinary frequency after cystoscopy and insomnia x 2 days. She was also concerned for her blood pressure that has been an ongoing issue. Patient reports BP is normally 120s/80s but suspect she normal is higher then reported. Her BPs have been variable with both systolic and diastolic elevations. She reports she hasn't taken her BP medications since 07/14 because "I forgot them". Upon reinstitution of medications her blood pressure did improve. Question possible obstructive sleep apnea or obesity hypoventilation syndrome as one component of poor control. In addition, recommend consideration for D/C indomethacin and alternative therapy for her hormonal replacement therapy in regards to blood pressure. Patient is at significant risk for cardiovascular disease due to uncontrolled blood pressure, obesity, diabetes, and race. Reinforced the importance of not missing blood pressure medication dosing. Patient also reporting a fall prior to admission. States she was trying to hold her urine overnight and was unable to so when rushing to the bathroom she fell on an outstretched R hand. Wrist XR negative for fracture but she did have tenderness in the anatomic snuffbox and thumb spica placed. Patient is stable and optimal for discharge home with outpatient follow-up with PCP and Urology. Total Time Spent: Greater than 30 minutes This includes examination of the patient, discharge planning, medication reconciliation, and communication with other providers. Discharge Instructions Please refer to the electronic Patient Visit Report (Discharge Instructions) for additional information. Additional Copies To Cheo Sage M.D.
[2016-07-19] MEDS: ENOXAPARIN 40 MG/0.4 ML SYR SQ SCH (17:49)
[2016-07-19] MEDS: FLUTICASONE PROPIONATE NA SPR 16 GM BTL SCH (20:49)
[2016-07-19] MEDS: LOSARTAN POTASSIUM 50 MG TAB PO SCH (21:14)
[2016-07-19] MEDS: DULOXETINE HCL 60 MG CAP PO SCH (21:14)
[2016-07-20 03:54] VITALS: BP 153/97
[2016-07-20] MEDS: hydrOXYzine HCL 25 MG TAB PO PRN (05:53)
[2016-07-20] MEDS: DILTIAZEM HCL 30 MG TAB PO PRN (05:54)
[2016-07-20 06:33] VITALS: BP 149/93
[2016-07-20] MEDS: LACTATED RINGER'S 1000ML 1,000 ML IV SCH (06:36)
[2016-07-20 07:06] VITALS: BP 143/84; PULSE 102; TEMP 36.7; O2SAT 92
[2016-07-20] MEDS: DILTIAZEM HCL 180 MG CAPCR PO SCH (08:46)
[2016-07-20] MEDS: MONTELUKAST SOD 10 MG TAB PO SCH (08:46)
[2016-07-20] MEDS: GABAPENTIN 600 MG TAB PO SCH (08:46)
[2016-07-20] MEDS: ATORVASTATIN 40 MG TAB PO SCH (08:46)
[2016-07-20] MEDS: PANTOprazole SOD 40 MG TAB PO SCH (08:47)
[2016-07-20] MEDS: FLUTICASONE/SALMETEROL (ADVAIR) 500/50 INH 14 PUFF INH SCH (08:47)
[2016-07-20] MEDS: POTASSIUM CHLORIDE 10 MEQ TABCR PO SCH (08:47)
[2016-07-20] MEDS: ESTROGENS, CONJUGATED 0.625 MG TAB PO SCH (08:47)
[2016-07-20] MEDS: ALBUTEROL HFA 8 GM INHALER INH SCH (08:47)
[2016-07-20] MEDS: FUROSEMIDE 20 MG TAB PO SCH (08:47)
[2016-07-20] MEDS: SUCRALFATE 1 GM TAB PO SCH (08:47)
[2016-07-20] MEDS: METFORMIN HCL 500 MG TABCR PO SCH (08:47)
[2016-07-20] MEDS: TIOTROPIUM BROMIDE 5 PUFF/90 MCG INH INH SCH (08:48)
[2016-07-20] MEDS: DICLOFENAC SOD 1% GEL 100 GM TUBE EXT SCH (08:49)
[2016-07-20 09:31] VITALS: BP 143/84; PULSE 102; TEMP 36.7; O2SAT 92
[2016-07-20] MEDS: INDOMETHACIN 25 MG CAP PO SCH (09:39)
--- NOTE | 2016-07-20 10:34 | Progress Note ---
Subjective Date of Service: July 20, 2016. Subjective Pt evaluation today including: conversation w/ patient, physical exam Voiding: no voiding problems reports her chest pain is resolved voiding pattern has been considerably improved Problem List Medical Problems: (1) Abdominal pain Status: Acute (2) Acute electrocardiogram changes Status: Acute (3) Precordial chest pain Status: Acute (4) SOB (shortness of breath) Status: Acute (5) Trichomonal infection Status: Acute Review of Systems Constitutional: No chills, No fatigue, No fever, No problem reported, No see HPI, No sweats, No weakness, No weight loss Eyes: No diplopia, No discharge, No eye pain, No problem reported, No redness, No see HPI, No worsening of vision ENT: No dental problems, No hearing loss, No nasal symptoms, No problem reported, No see HPI, No sore throat, No tinnitus, No trouble swallowing, No unusual epistaxis Objective Vital Signs Date Time Temp Pulse Resp B/P Pulse Ox O2 Delivery O2 Flow Rate FiO2 07/20/16 09:31 36.7 102 16 92 Room Air 07/20/16 07:30 Room Air 07/20/16 07:06 36.7 102 16 143/84 92 Room Air 07/20/16 06:33 149/93 07/20/16 03:54 153/97 07/19/16 23:20 36.6 95 18 155/103 93 Room Air 07/19/16 23:10 Room Air 07/19/16 17:05 158/89 07/19/16 16:00 94 Room Air 07/19/16 15:57 36.5 89 16 162/98 94 Room Air Physical Exam General Appearance: WD/WN, no apparent distress Eyes: normal inspection ENT: hearing grossly normal Neck: no adenopathy Respiratory/Chest: no respiratory distress, no accessory muscle use Cardiovascular: no edema Abdomen: soft Laboratory Results Last 24 Hours Test 07/19/16 13:22 Troponin I 0.026 ng/ml Assessment and Plan s/p cystoscopy and hydrodistention - also with some chest pain (anxiety?) - doing better now - plan for d/c home
== END 2016-07-20 11:00 | disposition home or self-care (01) ==
LOC: ENRESERVDT → ENRESERVTM → C.ACU 08:47 → C.MSW 14:30 → EDBEDREQ 14:50
PROVIDERS: ADMIT Family Medicine; ATTEND Internal Medicine
DX: R35.0 Frequency of micturition (principal); R39.89 Other symptoms and signs involving the genitourinary system; R07.9 Chest pain, unspecified; N30.10 Interstitial cystitis (chronic) without hematuria; I10 Essential (primary) hypertension; M25.531 Pain in right wrist; E11.9 Type 2 diabetes mellitus without complications; E78.5 Hyperlipidemia, unspecified; M79.7 Fibromyalgia; J45.909 Unspecified asthma, uncomplicated; J44.9 Chronic obstructive pulmonary disease, unspecified; G47.33 Obstructive sleep apnea (adult) (pediatric); I25.10 Atherosclerotic heart disease of native coronary artery without angina pectoris; I50.9 Heart failure, unspecified; E66.01 Morbid (severe) obesity due to excess calories; Z79.899 Other long term (current) drug therapy; Z90.49 Acquired absence of other specified parts of digestive tract; Z90.710 Acquired absence of both cervix and uterus; Z68.41 Body mass index [BMI] 40.0-44.9, adult; Z87.891 Personal history of nicotine dependence; Z82.49 Family history of ischemic heart disease and other diseases of the circulatory system

== ENCOUNTER → 2016-10-30 | Outpatient (CLI) | payer OTHER ==
[~2016-10-30] MED LIST changes: +BOPS PR; -CIPROFLOXACIN / D5W 400 MG IV SCH; -CRDCD/180 PO; +DILT180C PO; -LACTATED RINGER'S 1000ML 1,000 ML IV SCH; +VLTG EXT
--- NOTE | 2016-10-30 10:00 | DIAGNOSTIC IMAGING REPORT ---
TWO VIEW CHEST CLINICAL HISTORY: Cough. FINDINGS: PA and lateral chest radiographs are compared to study dated 09/02/2016 and correlated with chest CT dated 05/22/2016. The examination is degraded by large body habitus. The heart is enlarged and there is atherosclerotic calcification of the thoracic aorta. The pulmonary vasculature is noncongested. Chronic interstitial thickening is similar to previous. Bibasilar atelectasis is observed. The lungs and pleural spaces are otherwise clear. There is no pneumothorax. The skeletal structures are osteopenic. Degenerative change is seen throughout the thoracic spine. Arthritic change is noted in the right shoulder. IMPRESSION: Cardiomegaly with no acute cardiopulmonary abnormality. Electronically signed by: Zhou Osullivan M.D. 10/30/2016 9:58 AM Dictated Date/Time: 10/30/2016 9:57 AM
== END | disposition home or self-care (01) ==
LOC: C.RAD1850 09:41
PROVIDERS: ATTEND Physician Assistant
DX: R05 Cough (principal); I51.7 Cardiomegaly